=== PATIENT | female | born 1990 | race African-American/Black ===

== ENCOUNTER 2017-04-13 12:44 | Emergency (ER) | payer SELFPAY ==
[~2017-04-13] VITALS: Ht 165.1 cm; Wt 110.0 kg
[2017-04-13 12:46] VITALS: BP 120/79; PULSE 93; RESP 16; TEMP 98.2; O2SAT 98
--- NOTE | 2017-04-13 12:50 | PD ---
Physical Exam Time Seen by Provider: 12:49 Narrative 26 y/o female from [place] here for evaluation of seizure activity which she says occurred while sleeping. Her roommate told her she had a seizure. Currently on dilantin. Vital signs reviewed. Seen at triage desk. Awaiting bed placement. Data Data Last Documented VS Vital Signs Date Time Temp Pulse Resp B/P Pulse Ox O2 Delivery O2 Flow Rate FiO2 04/13/17 12:46 98.2 93 16 120/79 98 MDM Medical Record Reviewed: Yes Supervised Visit with MORALES: Venkat Juarez Apr 13, 2017 12:50
--- NOTE | 2017-04-13 12:55 | PD ---
HPI Chief Complaint: Seizure Time Seen by Provider: 12:55 Travel History International Travel<30 days: Yes Contact w/Intl Traveler<30days: [place] Traveled to: [facility] Traveled to known affect area: No History of Present Illness HPI 26-year-old female with history of seizures presents to the emergency department today for evaluation of foot her friend believed to have been a seizure. Patient was sleeping while this occurred. It was at 4 AM this morning. The friend accompanies the patient states that she rolled her to her side until the seizure activity subsided. [facility] ambulance was contacted and the patient chose not to come to the emergency department. Patient did not bite her tongue. There is no loss of bowel or bladder. Patient does not recall a postictal state. States when she woke up her friend was there. Patient states her last seizure was in February. She is supposed to be taking Dilantin but has not been taking this. At this time the patient states that she feels well. She has not been recently ill. Denies any drug or alcohol use. She has no other symptoms to report at this time. [facility] Past Medical History Seizures: Yes ?: Not Social History Alcohol Use: No Tobacco Use: No Substance Use: No Allergies-Medications (Allergen,Severity, Reaction): Coded Allergies: Penicillin (Verified Allergy, Severe, 04/13/17) Reported Meds & Prescriptions Reported Meds & Active Scripts Active Dilantin (Phenytoin Extended) 100 Mg Cap 100 Mg PO TID Review of Systems Except as stated in HPI: all other systems reviewed are Neg Physical Exam Narrative GENERAL: Well-nourished female patient, ambulatory and in no acute distress SKIN: Focused skin assessment warm/dry. HEAD: Atraumatic. Normocephalic. EYES: Pupils equal and round. No scleral icterus. No injection or drainage. ENT: No nasal bleeding or discharge. Mucous membranes pink and moist. NECK: Trachea midline. No JVD. CARDIOVASCULAR: Regular rate and rhythm. No murmur appreciated. RESPIRATORY: No accessory muscle use. Clear to auscultation. Breath sounds equal bilaterally. GASTROINTESTINAL: Abdomen soft, non-tender, nondistended. Hepatic and splenic margins not palpable. MUSCULOSKELETAL: No obvious deformities. No clubbing. No cyanosis. No edema. NEUROLOGICAL: Awake and alert. No obvious cranial nerve deficits. Motor grossly within normal limits. Normal speech. PSYCHIATRIC: Appropriate mood and affect Data Data Last Documented VS Vital Signs Date Time Temp Pulse Resp B/P Pulse Ox O2 Delivery O2 Flow Rate FiO2 04/13/17 13:03 Room Air 04/13/17 12:46 98.2 93 16 120/79 98 Orders Complete Blood Count With Diff (04/13/17 13:00) Basic Metabolic Panel (Bmp) (04/13/17 13:00) Phenytoin (Dilantin) (04/13/17 13:00) Blood Glucose (04/13/17 13:00) Ecg Monitoring (04/13/17 13:00) Iv Access Insert/Monitor (04/13/17 13:00) Oximetry (04/13/17 13:00) Sodium Chlor 0.9% 1000 Ml Inj (Ns 1000 M (04/13/17 13:00) Sodium Chloride 0.9% Flush (Ns Flush) (04/13/17 13:00) Ua Includes Microscopic (04/13/17 13:00) Ed Urine Pregnancytest Poc (04/13/17 13:00) Magnesium (Mg) (04/13/17 13:00) Phenytoin Inj (Dilantin Inj) (04/13/17 14:15) Labs Laboratory Tests Test 04/13/17 13:15 White Blood Count 9.8 TH/MM3 Red Blood Count 5.19 MIL/MM3 Hemoglobin 13.0 GM/DL Hematocrit 39.5 % Mean Corpuscular Volume 76.2 FL Mean Corpuscular Hemoglobin 25.0 PG Mean Corpuscular Hemoglobin 32.9 % Concent Red Cell Distribution Width 14.5 % Platelet Count 337 TH/MM3 Mean Platelet Volume 8.7 FL Neutrophils (%) (Auto) 63.0 % Lymphocytes (%) (Auto) 25.9 % Monocytes (%) (Auto) 8.3 % Eosinophils (%) (Auto) 2.1 % Basophils (%) (Auto) 0.7 % Neutrophils # (Auto) 6.1 TH/MM3 Lymphocytes # (Auto) 2.5 TH/MM3 Monocytes # (Auto) 0.8 TH/MM3 Eosinophils # (Auto) 0.2 TH/MM3 Basophils # (Auto) 0.1 TH/MM3 CBC Comment DIFF FINAL Differential Comment Urine Color YELLOW Urine Turbidity HAZY Urine pH 5.5 Urine Specific Turner 1.024 Urine Protein NEG mg/dL Urine Glucose (UA) NEG mg/dL Urine Ketones NEG mg/dL Urine Occult Blood NEG Urine Nitrite NEG Urine Bilirubin NEG Urine Urobilinogen LESS THAN 2.0 MG/DL Urine Leukocyte Esterase MOD Urine RBC 2 /hpf Urine WBC 1 /hpf Urine Squamous Epithelial 12 /hpf Cells Urine Bacteria RARE /hpf Urine Mucus FEW /lpf Sodium Level 141 MEQ/L Potassium Level 3.9 MEQ/L Chloride Level 106 MEQ/L Carbon Dioxide Level 27.5 MEQ/L Anion Gap 8 MEQ/L Blood Urea Nitrogen 8 MG/DL Creatinine 0.80 MG/DL Estimat Glomerular Filtration 85 ML/MIN Rate Random Glucose 94 MG/DL Calcium Level 9.4 MG/DL Magnesium Level 2.1 MG/DL Phenytoin (Dilantin) Level 2.3 MCG/ML MDM Medical Decision Making Medical Screen Exam Complete: Yes Emergency Medical Condition: Yes Medical Record Reviewed: Yes Differential Diagnosis Breakthrough seizure versus medication noncompliance versus electrolyte abnormality versus subtherapeutic medication Narrative Course 26-year-old female presents to emergency department for evaluation of possible seizure-like activity. Patient does have history of seizures with her last known one being in February. She has not been taking her medication as prescribed. Here she is awake and alert. She has known focal deficits. CBC is without acute abnormality. BMP is within normal limits. Magnesium is 2.1. Urinalysis is hazy with moderate leukocyte esterase, rare bacteria, few mucus. Phenytoin is subtherapeutic at 2.3. Patient is given Dilantin bolus. She will get a prescription for Dilantin. She is instructed to take this as directed and to follow-up with a neurologist. She agrees to return immediately with any acute worsening of symptoms. Diagnosis Primary Impression: Seizure Additional Impression: Subtherapeutic serum dilantin level Referrals: Neurologist Primary Care Physician Patient Instructions: General Instructions, Recurrent Seizures in Adults (ED) Additional Instructions: It is important that you take your antiseizure medication as prescribed Follow-up with the primary care provider Seek neurology evaluation Return immediately with any acute worsening of symptoms Med/Other Pt SpecificInfo: Prescription(s) given Scripts Phenytoin Extended (Dilantin)100 Mg [id number] Mg PO TID #90 CAP Ref 0 Prov:Theresa Moreno 04/13/17 Disposition: 01 DISCHARGE HOME Condition: Stable Theresa Moreno Apr 13, 2017 12:55
[2017-04-13] MEDS ORDERED: SODIUM CHLORIDE 0.9% FLUSH 10 ML FLUSH IVF PRN (13:00)
[2017-04-13] MEDS ORDERED: SODIUM CHLOR 0.9% 1000 ML INJ 1,000 ML IV ONE (13:00)
[2017-04-13 13:30] LABS: AUTOMATED NEUTROPHIL # 6.1 TH/MM3 (1.8-7.7); BASOPHIL # 0.1 TH/MM3 (0-0.2); BASOPHIL % 0.7 % (0.0-2.0); EOSINOPHIL # 0.2 TH/MM3 (0-0.4); EOSINOPHIL % 2.1 % (0.0-4.0); HEMATOCRIT 39.5 % (35.0-46.0); HEMO FLAGS DIFF FINAL; LYMPH % 25.9 % (9.0-44.0); LYMPHOCYTE # 2.5 TH/MM3 (1.0-4.8); MEAN CELL VOLUME 76.2 FL (80.0-100.0); MEAN CORPUSCULAR HGB CONC 32.9 % (32.0-36.0); MONO % 8.3 % (0.0-8.0); PLATELET COUNT 337 TH/MM3 (150-450); RED BLOOD COUNT 5.19 MIL/MM3 (4.00-5.30); RED CELL DISTRIBUTION WIDTH 14.5 % (11.6-17.2); WHITE BLOOD COUNT 9.8 TH/MM3 (4.0-11.0)
[2017-04-13 13:35] LABS: BACTERIA, URINE RARE /hpf; BLOOD, URINE NEG (NEG); GLUCOSE,URINE NEG (NEG); KETONE, URINE NEG (NEG); MUCUS URINE FEW /lpf (OCC); NITRITE,URINE NEG (NEG); PH, URINE 5.5 (5.0-8.5); SQUAMOUS EPITHELIAL CELL URINE 12 /hpf (0-5); URINE COLOR YELLOW (YELLW/STRAW)
[2017-04-13 13:42] LABS: BICARBONATE 27.5 MEQ/L (21.0-32.0); MAGNESIUM 2.1 MG/DL (1.5-2.5); POTASSIUM 3.9 MEQ/L (3.5-5.1)
[2017-04-13] MEDS ORDERED: PHENYTOIN INJ 1,000 MG in SODIUM CHLORIDE 0.9% INJ 100 ML IV ONE (14:15)
[2017-04-13] MEDS ORDERED: DILA100C PO (14:40)
== END 2017-04-13 16:32 | disposition home or self-care (01) ==
LOC: NEPC 12:44
DX: R56.9 Unspecified convulsions (principal)
CPT/HCPCS: 80048; 80185; 81001; 83735; 84703; 85025; 96361; 96365; 96366; 99284; J1165; J7030

== ENCOUNTER 2017-10-21 16:29 | Emergency (ER) | payer SELFPAY ==
[~2017-10-21] VITALS: Ht 165.1 cm; Wt 100.0 kg
[~2017-10-21 16:29] MED LIST: DILA100C PO
[2017-10-21 16:34] VITALS: BP 128/66; PULSE 99; RESP 17; TEMP 97.9; O2SAT 100
--- NOTE | 2017-10-21 16:41 | PD ---
HPI Chief Complaint: Seizure Time Seen by Provider: 16:41 Travel History International Travel<30 days: No Contact w/Intl Traveler<30days: No Traveled to known affect area: No History of Present Illness HPI 27-year-old female with history of seizure disorder, currently not on her Dilantin, presents to emergency department for evaluation following a seizure that occurred approximately 1 hour ago. This was witnessed. Patient to not strike her head or lose consciousness. She denies any focal deficits or weakness. There is no tongue biting or incontinence. Patient has no other symptoms reported this time. [facility] Past Medical History Diminished Hearing: No Seizures: Yes ?: Not Social History Alcohol Use: No Tobacco Use: No Substance Use: No Allergies-Medications (Allergen,Severity, Reaction): Coded Allergies: penicillin G (Unverified Allergy, Severe, 06/26/17) Reported Meds & Prescriptions Reported Meds & Active Scripts Active Dilantin (Phenytoin Extended) 100 Mg Cap 100 Mg PO TID Dilantin (Phenytoin Extended) 100 Mg Cap 100 Mg PO TID Review of Systems Except as stated in HPI: all other systems reviewed are Neg Physical Exam Narrative GENERAL: Well-nourished, well-developed female patient, ambulatory and in no acute distress. SKIN: Focused skin assessment warm/dry. HEAD: Normocephalic. Atraumatic EYES: No scleral icterus. No injection or drainage. Pupils are equal and reactive to light. EOMI. ENT: Mucosa pink and moist. No erythema or exudates. No uvular edema. No uvular , palatal, or tonsillar deviation. Airway patent. Nasal turbinates appear normal without nasal blood, purulent drainage or septal hematoma. NECK: Supple, trachea midline. No JVD or lymphadenopathy. CARDIOVASCULAR: Regular rate and rhythm without murmurs, gallops, or rubs. RESPIRATORY: Breath sounds equal bilaterally. No accessory muscle use. GASTROINTESTINAL: Abdomen soft, non-tender, nondistended. MUSCULOSKELETAL: No cyanosis, or edema. Equal dust mixer strength bilaterally. BACK: Nontender without obvious deformity. No CVA tenderness. Data Data Last Documented VS Vital Signs Date Time Temp Pulse Resp B/P (MAP) Pulse Ox O2 Delivery O2 Flow Rate FiO2 10/21/17 18:18 114/56 (75) 10/21/17 16:38 17 100 Room Air 10/21/17 16:34 97.9 99 Orders Orders Phenytoin Inj (Dilantin Inj) (10/21/17 16:45) Acetaminophen (Tylenol) (10/21/17 17:00) Ed Discharge Order (10/21/17 17:34) Electrocardiogram (10/21/17 16:44) [facility] Medical Decision Making Medical Screen Exam Complete: Yes Emergency Medical Condition: Yes Medical Record Reviewed: Yes Differential Diagnosis Seizure disorder versus medication noncompliance versus subtherapeutic Dilantin level versus electro-lyte abnormality Narrative Course 27-year-old female with history of seizure disorder presents to emergency department following a seizure. This was witnessed. Patient has no focal deficits or weakness. She is awake, oriented 3. Follows commands with equal strength. I discussed the patient my attending. With seizure disorder and known noncompliance with medication at this time, there is no further workup warranted. We will give her an IV bolus of Dilantin and give her a refill of her Dilantin medication. Patient has had no seizure activity while here. She'll be discharged at this time. Diagnosis Primary Impression: Seizure Referrals: Primary Care Physician Patient Instructions: General Instructions, Recurrent Seizures in Adults (ED) Additional Instructions: It is important that you take your medication as prescribed Follow-up with a primary care provider Return immediately with any acute worsening of symptoms Med/Other Pt SpecificInfo: Prescription(s) given Scripts Phenytoin Extended (Dilantin) 100 Mg Cap 100 MG PO TID for Control Seizures, #90 CAP 0 Refills Prov: Theresa Moreno 10/21/17 Disposition: 01 DISCHARGE HOME Condition: Stable Theresa Moreno Oct 21, 2017 16:41
[2017-10-21] MEDS ORDERED: PHENYTOIN INJ 1,500 MG in SODIUM CHLOR 0.9% 250 ML INJ 250 ML IV ONE (16:45)
[2017-10-21] MEDS ORDERED: ACETAMINOPHEN 325 MG TAB PO ONE (17:00)
[2017-10-21] MEDS ORDERED: DILA100C PO (17:36)
[2017-10-21 18:18] VITALS: BP 114/56
--- NOTE | 2017-10-22 18:06 | EKG ---
Date Performed: 10/21/2017 Time Performed: 16:44:07 PTAGE: 27 years EKG: Sinus rhythm J point in the early precordial lead directly represents early repolarization NORMAL ECG NO PREVIOUS TRACING DOCTOR: Burke Ng Interpretating Date/Time 10/22/2017 18:05:16
== END 2017-10-21 19:09 | disposition home or self-care (01) ==
LOC: NEPE 16:29
DX: G40.909 Epilepsy, unspecified, not intractable, without status epilepticus (principal); Z88.0 Allergy status to penicillin; Z79.899 Other long term (current) drug therapy
CPT/HCPCS: 93005; 96365; 99285; J1165; J7050

== ENCOUNTER 2017-10-28 18:06 | Emergency (ER) | payer SELFPAY ==
[~2017-10-28] VITALS: Ht 160 cm; Wt 115.0 kg
[2017-10-28 18:08] VITALS: BP 133/75; PULSE 93; RESP 16; TEMP 97.8; O2SAT 98
[2017-10-28] MEDS ORDERED: IBUPROFEN 800 MG TAB PO ONE (18:45)
--- NOTE | 2017-10-28 19:05 | PD ---
HPI Chief Complaint: Pain: Acute or Chronic Time Seen by Provider: 18:37 Travel History International Travel<30 days: No Contact w/Intl Traveler<30days: No Traveled to known affect area: No History of Present Illness HPI 27-year-old right-hand dominant female presents to the ED for evaluation of one week history of 4/10 left arm pain. Gradual onset. Patient states that she had an IV placed in the left antecubital space one week ago. She endorses warmth, redness and tenderness of the area. She endorses an episode of weakness of the hand which is now resolved. She states that the pain is worsened by certain motions. She denies fevers, chills, shortness of breath, chest pain, palpitations. No treatment attempted at home. PFSH Past Medical History Diminished Hearing: No Seizures: Yes ?: Not LMP: 09/2017 Social History Alcohol Use: No Tobacco Use: No Substance Use: No Allergies-Medications (Allergen,Severity, Reaction): Coded Allergies: penicillin G (Unverified Allergy, Severe, 10/28/17) Reported Meds & Prescriptions Reported Meds & Active Scripts Active Dilantin (Phenytoin Extended) 100 Mg Cap 100 Mg PO TID Review of Systems Except as stated in HPI: all other systems reviewed are Neg Physical Exam Narrative GENERAL: Well-nourished, well-developed [place] female in no acute distress. SKIN: Focused skin assessment warm/dry. HEAD: Normocephalic. EYES: No scleral icterus. No injection or drainage. NECK: Supple, trachea midline. No JVD or lymphadenopathy. CARDIOVASCULAR: Regular rate and rhythm without murmurs, gallops, or rubs. RESPIRATORY: Breath sounds are and equal bilaterally. No accessory muscle use. GASTROINTESTINAL: Abdomen soft, non-tender, nondistended. MUSCULOSKELETAL: No cyanosis, or edema. FOCUSED LEFT UPPER EXTREMITY EXAM: 2+ DP pulse. There is faint erythema of the anterior aspect of the left upper arm. There is ropey induration from the decubital area to the mid bicep. Strong photoengraving finisher strength. Sensation intact to light touch distally. BACK: Nontender without obvious deformity. No CVA tenderness. Data Data Last Documented VS Vital Signs Date Time Temp Pulse Resp B/P (MAP) Pulse Ox O2 Delivery O2 Flow Rate FiO2 10/28/17 18:08 97.8 93 16 133/75 (94) 98 Orders Orders Ibuprofen (Motrin) (10/28/17 18:45) Us Arm Venous Doppler (10/28/17 18:40) MDM Medical Decision Making Medical Screen Exam Complete: Yes Emergency Medical Condition: Yes Differential Diagnosis Superficial thrombophlebitis versus DVT versus cellulitis versus other Narrative Course 27-year-old right-hand dominant female presents to the ED for evaluation of one week history of 4/10 left arm pain. Gradual onset. Patient states that she had an IV placed in the left antecubital space one week ago. She endorses warmth, redness and tenderness of the area. She endorses an episode of weakness of the hand which is now resolved. She states that the pain is worsened by certain motions. She denies fevers, chills, shortness of breath, chest pain, palpitations. Vitals reviewed. On exam there is ropey induration above the left antecubital space. Patient was administered ibuprofen. We'll get a ultrasound to rule out DVT. Patient signed out to Masood Cutler PA-C at end of shift. Please see his note for disposition. Kasey Ring Oct 28, 2017 19:05
--- NOTE | 2017-10-28 19:51 | RADRPT ---
EXAM DATE/TIME: 10/28/2017 18:49 [facility] COMPARISON: No previous studies available for comparison. INDICATIONS : Left arm swelling. MEDICAL HISTORY : Seizures. SURGICAL HISTORY : None. ENCOUNTER: Initial ACUITY: 1 week PAIN SCORE: 6/10 LOCATION: Left arm. FINDINGS: There is occlusive thrombus in the mid and distal cephalic vein. There is spontaneous flow documented in the brachial, basilic, axillary, and subclavian veins. The flow is phasic with respiration. Dir ection of flow in the jugular vein is caudal. CONCLUSION: Thrombus seen in the left mid and distal cephalic vein. Arnaud Winn MD on October 28, 2017 at 19:49 Board Certified Radiologist. This report was verified electronically.
[2017-10-28] MEDS ORDERED: IBUP-232 PO (20:55)
--- NOTE | 2017-10-28 20:59 | PD ---
Physical Exam Date Seen by Provider: Oct 28, 2017 Time Seen by Provider: 20:57 Data Data Last Documented VS Vital Signs Date Time Temp Pulse Resp B/P (MAP) Pulse Ox O2 Delivery O2 Flow Rate FiO2 10/28/17 18:08 97.8 93 16 133/75 (94) 98 Orders Orders Ibuprofen (Motrin) (10/28/17 18:45) Us Arm Venous Doppler (10/28/17 18:40) Ed Discharge Order (10/28/17 20:55) [facility] Medical Record Reviewed: Yes Supervised Visit with MORALES: Yes Interpretation(s) Last 24 hours Impressions Upper Extremity Ultrasound 10/28/17 1840 Signed Impressions: Service Date/Time: Saturday, October 28, 2017 18:49 - CONCLUSION: Thrombus seen in the left mid and distal cephalic vein. Arnaud Winn MD Differential Diagnosis . Narrative Course Ultrasound of the extremity reveals superficial phlebitis in the cephalic vein. Patient is notified of the ultrasound findings. She understands that this is a superficial phlebitis and not a deep venous thrombosis. Patient will be treated symptomatically with warm moist heat, ibuprofen. This is superficial phlebitis Diagnosis Primary Impression: Superficial phlebitis Patient Instructions: General Instructions Additional Instruction: Rest. Warm moist compresses the next few days. Motrin. Follow-up with a primary care doctor in 1 week. Return to the ER if any problems. Med/Other Pt SpecificInfo: Prescription(s) given Scripts Ibuprofen (Ibuprofen) 600 Mg Tab 600 MG PO Q6H Y for Pain/Inflammation, #40 TAB 0 Refills Prov: Barbie Ramírez MD 10/28/17 Disposition: 01 DISCHARGE HOME Condition: Stable See Kemp Oct 28, 2017 20:59
== END 2017-10-28 21:27 | disposition home or self-care (01) ==
LOC: NEPD 18:06
DX: I82.612 Acute embolism and thrombosis of superficial veins of left upper extremity (principal); R56.9 Unspecified convulsions; Z88.0 Allergy status to penicillin
CPT/HCPCS: 93971; 99284

== ENCOUNTER 2017-12-05 14:37 | Emergency (ER) | payer MEDICAID ==
[~2017-12-05] VITALS: Ht 165.1 cm; Wt 109.0 kg
[~2017-12-05 14:37] MED LIST changes: +IBUP-232 PO
[2017-12-05 14:38] VITALS: BP 133/68; PULSE 100; RESP 18; TEMP 99; O2SAT 99
[2017-12-05 15:28] LABS: AUTOMATED NEUTROPHIL # 7.1 TH/MM3 (1.8-7.7); BASOPHIL # 0.1 TH/MM3 (0-0.2); BASOPHIL % 0.7 % (0.0-2.0); EOSINOPHIL # 0.4 TH/MM3 (0-0.4); EOSINOPHIL % 3.7 % (0.0-4.0); HEMATOCRIT 37.2 % (35.0-46.0); HEMOGLOBIN 12.1 GM/DL (11.6-15.3); LYMPH % 20.8 % (9.0-44.0); LYMPHOCYTE # 2.2 TH/MM3 (1.0-4.8); MEAN CELL VOLUME 75.2 FL (80.0-100.0); MEAN CORPUSCULAR HEMOGLOBIN 24.5 PG (27.0-34.0); MEAN CORPUSCULAR HGB CONC 32.6 % (32.0-36.0); MEAN PLATELET VOLUME 8.1 FL (7.0-11.0); MONO % 8.4 % (0.0-8.0); MONOCYTE # 0.9 TH/MM3 (0-0.9); NEUT % 66.4 % (16.0-70.0); PLATELET COUNT 309 TH/MM3 (150-450); RED BLOOD COUNT 4.94 MIL/MM3 (4.00-5.30); RED CELL DISTRIBUTION WIDTH 15.3 % (11.6-17.2); WHITE BLOOD COUNT 10.7 TH/MM3 (4.0-11.0)
[2017-12-05 15:44] LABS: BICARBONATE 26.8 MEQ/L (21.0-32.0); CREATININE 0.85 MG/DL (0.50-1.00)
[2017-12-05 15:45] LABS: BACTERIA, URINE RARE /hpf; BILIRUBIN, URINE NEG (NEG); BLOOD, URINE LARGE (NEG); GLUCOSE,URINE NEG (NEG); KETONE, URINE TRACE mg/dL (NEG); MUCUS URINE FEW /lpf (OCC); NITRITE,URINE NEG (NEG); PH, URINE 5.5 (5.0-8.5); SQUAMOUS EPITHELIAL CELL URINE 7 /hpf (0-5); URINE LEUKOCYTE ESTERASE SMALL (NEG)
[2017-12-05 15:48] LABS: URINE COLOR RED (YELLW/STRAW)
--- NOTE | 2017-12-05 16:47 | PD ---
Data Data Last Documented VS Vital Signs Date Time Temp Pulse Resp B/P (MAP) Pulse Ox O2 Delivery O2 Flow Rate FiO2 12/05/17 14:38 99.0 100 18 133/68 (89) 99 Room Air Orders Orders Beta Hcg (Quant/Titer) (12/05/17 14:41) Complete Blood Count With Diff (12/05/17 14:41) Basic Metabolic Panel (Bmp) (12/05/17 14:41) Complete Rh (12/05/17 14:41) Urinalysis - C+S If Indicated (12/05/17 14:41) Ed Urine Pregnancytest Poc (12/05/17 14:41) Urine Culture (12/05/17 14:53) Ed Poc Ultrasound (12/05/17 ) Us Pelvis Comp W Transvaginal (12/05/17 ) Labs Laboratory Tests Test 12/05/17 14:53 12/05/17 15:04 Urine Color RED Urine Turbidity HAZY Urine pH 5.5 Urine Specific [place] 1.023 Urine Protein 30 mg/dL Urine Glucose (UA) NEG mg/dL Urine Ketones TRACE mg/dL Urine Occult Blood LARGE Urine Nitrite NEG Urine Bilirubin NEG Urine Urobilinogen LESS THAN 2.0 MG/DL Urine Leukocyte Esterase SMALL Urine RBC /hpf Urine WBC 13 /hpf Urine Squamous Epithelial Cells 7 /hpf Urine Bacteria RARE /hpf Urine Mucus FEW /lpf Microscopic Urinalysis Comment CULTURE INDICATED White Blood Count 10.7 TH/MM3 Red Blood Count 4.94 MIL/MM3 Hemoglobin 12.1 GM/DL Hematocrit 37.2 % Mean Corpuscular Volume 75.2 FL Mean Corpuscular Hemoglobin 24.5 PG Mean Corpuscular Hemoglobin Concent 32.6 % Red Cell Distribution Width 15.3 % Platelet Count 309 TH/MM3 Mean Platelet Volume 8.1 FL Neutrophils (%) (Auto) 66.4 % Lymphocytes (%) (Auto) 20.8 % Monocytes (%) (Auto) 8.4 % Eosinophils (%) (Auto) 3.7 % Basophils (%) (Auto) 0.7 % Neutrophils # (Auto) 7.1 TH/MM3 Lymphocytes # (Auto) 2.2 TH/MM3 Monocytes # (Auto) 0.9 TH/MM3 Eosinophils # (Auto) 0.4 TH/MM3 Basophils # (Auto) 0.1 TH/MM3 CBC Comment DIFF FINAL Differential Comment Blood Urea Nitrogen 7 MG/DL Creatinine 0.85 MG/DL Random Glucose 96 MG/DL Calcium Level 9.0 MG/DL Sodium Level 138 MEQ/L Potassium Level 3.5 MEQ/L Chloride Level 106 MEQ/L Carbon Dioxide Level 26.8 MEQ/L Anion Gap 5 MEQ/L Estimat Glomerular Filtration Rate 96 ML/MIN Human Chorionic Gonadotropin, Quant 14458 MIU/ML MDM Supervised Visit with MORALES: Yes Narrative Course The history, exam, and medical decision-making in the associated midlevel provider note were completed with my assistance. I reviewed and agree with the findings presented. I attest that I had a [id number] encounter with the patient on the same day, and personally performed and documented my assessment and findings in the medical record. *My assessment and Findings: This is a 27-year-old female who presents to the emergency department with vaginal bleeding in the setting of early . I performed a bedside ultrasound was unable to visualize a gestational sac. Formal ultrasound will be obtained. If no IUP is visualized patient will require serial beta hCG in 2 days. Procedures Procedure Narrative Ultrasound: Uterus was visualized and there appeared to be heterogenous products in the uterus but no definitive gestational sac. Janet Lagos MD Dec 05, 2017 16:47
--- NOTE | 2017-12-05 17:47 | PD ---
HPI Chief Complaint: Related Problem Time Seen by Provider: 15:57 Travel History International Travel<30 days: No Contact w/Intl Traveler<30days: No Traveled to known affect area: No History of Present Illness HPI 27-year-old female that presents to the ED for evaluation of vaginal bleeding in . The patient she's possibility about 2 months . Per patient she notices the bleeding since yesterday but the bleeding became more severe today. Per patient she has abdominal cramping like her. The pain is 4 out of 10. Denies any numbness, tingling, weakness. States having some clots. Per patient her last menstrual period was in October 01. She did urgency test at home and was positive. She denies any medical issues. Allergies to penicillin. Denies any nausea or vomiting. No bowel movement or urinary issues. PFSH Past Medical History Diminished Hearing: No Seizures: Yes ?: LMP: 10/01/17 Social History Alcohol Use: No Tobacco Use: No Substance Use: No Allergies-Medications (Allergen,Severity, Reaction): Coded Allergies: penicillin G (Verified Allergy, Severe, 12/05/17) Reported Meds & Prescriptions Reported Meds & Active Scripts Active Ibuprofen 600 Mg Tab 600 Mg PO Q6H PRN Dilantin (Phenytoin Extended) 100 Mg Cap 100 Mg PO TID Review of Systems Except as stated in HPI: all other systems reviewed are Neg Physical Exam Narrative GENERAL: SKIN: Warm and dry. HEAD: Atraumatic. Normocephalic. EYES: Pupils equal and round. No scleral icterus. No injection or drainage. ENT: No nasal bleeding or discharge. Mucous membranes pink and moist. Tongue is midline. No uvula deviation. NECK: Trachea midline. No JVD. CARDIOVASCULAR: Regular rate and rhythm. No murmurs, S3, S4. RESPIRATORY: No accessory muscle use. Clear to auscultation. Breath sounds equal bilaterally. GASTROINTESTINAL: Abdomen soft, non-tender, nondistended. Hepatic and splenic margins not palpable. MUSCULOSKELETAL: Extremities without clubbing, cyanosis, or edema. No obvious deformities. Full range of motion of the upper and lower extremities bilaterally. 2+ pulses bilaterally. NEUROLOGICAL: Awake and alert. No obvious cranial nerve deficits. Motor grossly within normal limits. Five out of 5 muscle strength in the arms and legs. Normal speech. PSYCHIATRIC: Appropriate mood and affect; insight and judgment normal. Data Data Last Documented VS Vital Signs Date Time Temp Pulse Resp B/P (MAP) Pulse Ox O2 Delivery O2 Flow Rate FiO2 12/05/17 14:38 99.0 100 18 133/68 (89) 99 Room Air Orders Orders Beta Hcg (Quant/Titer) (12/05/17 14:41) Complete Blood Count With Diff (12/05/17 14:41) Basic Metabolic Panel (Bmp) (12/05/17 14:41) Complete Rh (12/05/17 14:41) Urinalysis - C+S If Indicated (12/05/17 14:41) Ed Urine Pregnancytest Poc (12/05/17 14:41) Urine Culture (12/05/17 14:53) Ed Poc Ultrasound (12/05/17 ) Us Pelvis (Ques Pr/Ect)W Trans (12/05/17 ) Labs Laboratory Tests Test 12/05/17 14:53 12/05/17 15:04 Urine Color RED Urine Turbidity HAZY Urine pH 5.5 Urine Specific [place] 1.023 Urine Protein 30 mg/dL Urine Glucose (UA) NEG mg/dL Urine Ketones TRACE mg/dL Urine Occult Blood LARGE Urine Nitrite NEG Urine Bilirubin NEG Urine Urobilinogen LESS THAN 2.0 MG/DL Urine Leukocyte Esterase SMALL Urine RBC /hpf Urine WBC 13 /hpf Urine Squamous Epithelial Cells 7 /hpf Urine Bacteria RARE /hpf Urine Mucus FEW /lpf Microscopic Urinalysis Comment CULTURE INDICATED White Blood Count 10.7 TH/MM3 Red Blood Count 4.94 MIL/MM3 Hemoglobin 12.1 GM/DL Hematocrit 37.2 % Mean Corpuscular Volume 75.2 FL Mean Corpuscular Hemoglobin 24.5 PG Mean Corpuscular Hemoglobin Concent 32.6 % Red Cell Distribution Width 15.3 % Platelet Count 309 TH/MM3 Mean Platelet Volume 8.1 FL Neutrophils (%) (Auto) 66.4 % Lymphocytes (%) (Auto) 20.8 % Monocytes (%) (Auto) 8.4 % Eosinophils (%) (Auto) 3.7 % Basophils (%) (Auto) 0.7 % Neutrophils # (Auto) 7.1 TH/MM3 Lymphocytes # (Auto) 2.2 TH/MM3 Monocytes # (Auto) 0.9 TH/MM3 Eosinophils # (Auto) 0.4 TH/MM3 Basophils # (Auto) 0.1 TH/MM3 CBC Comment DIFF FINAL Differential Comment Blood Urea Nitrogen 7 MG/DL Creatinine 0.85 MG/DL Random Glucose 96 MG/DL Calcium Level 9.0 MG/DL Sodium Level 138 MEQ/L Potassium Level 3.5 MEQ/L Chloride Level 106 MEQ/L Carbon Dioxide Level 26.8 MEQ/L Anion Gap 5 MEQ/L Estimat Glomerular Filtration Rate 96 ML/MIN Human Chorionic Gonadotropin, Quant 55735 MIU/ML MDM Medical Decision Making Medical Screen Exam Complete: Yes Emergency Medical Condition: Yes Medical Record Reviewed: Yes Interpretation(s) CBC & BMP Diagram 12/05/17 15:04 Cal[place] 9.[address] [place] [address] Differential Diagnosis versus bleeding with versus missed versus threatened Narrative Course 27-year-old female that presents to the ED for evaluation of bleeding during . Patient was properly examined and was found to have signs and symptoms concerning for miscarriage. Labs and imaging were ordered. My attending did a bedside ultrasound and could not really see a fetus that she recommended having a formal ultrasound which was ordered. Labs and imaging still pending and the writing of this note. Case was signed out to Dr. Joy pending disposition. Patient Instructions: General Instructions Additional Instructions: Follow up with [employer]. Recheck in 48 hours to be make sure your levels are trending down. See ED if worsening symptoms. Med/Other Pt SpecificInfo: No Change to Meds Disposition: 01 DISCHARGE HOME Condition: Stable Pj Fay Dec 05, 2017 17:47
--- NOTE | 2017-12-05 18:09 | RADRPT ---
EXAM DATE/TIME: 12/05/2017 17:02 [facility] COMPARISON: No previous studies available for comparison. INDICATIONS : Bleeding and pain with . LAB(S): Beta-hC MEDICAL HISTORY : . Seizures. Miscarriage. SURGICAL HISTORY : None. ENCOUNTER: Initial ACUITY: 2 days PAIN SCORE: 4/10 LOCATION: Bilateral pelvis MEASUREMENTS: UTERUS: 13.2 x 7.6 x 6.1 cm ENDOMETRIAL STRIPE: >20 mm RIGHT OVARY: 3.2 x 2.2 x 2.4 cm LEFT OVARY: 4.3 x 3.3 x 2.3 cm FREE FLUID: Yes Trace in posterior cul de sac. CROWN RUMP LENGTH: Non visualized. = WKS DAYS FHR: Non visualized. BPM FINDINGS: UTERUS: The myometrium has homogeneous echotexture without mass. No identifiable gestational sac despite the positive beta hCG. No identifiable retained products of conception. Endometrial stripe is prominent. 5 mm nabothian-type cyst in the region of the cervix. RIGHT OVARY: Ovary contains no mass or significant cystic lesion. LEFT OVARY: Complex area in the mid left ovary measures 2.6 x 2.6 x 1.7 cm and likely represents the involuting c orpus luteum. MISCELLANEOUS: Trace free fluid in the cul-de-sac. CONCLUSION: 1. Sonographic findings characteristic of an aborted . 2. Trace free fluid. Amish Muniz MD on December 05, 2017 at 18:01 Board Certified Radiologist. This report was verified electronically.
[2017-12-05 18:41] VITALS: BP 133/79; PULSE 81; RESP 17; O2SAT 97
--- NOTE | 2017-12-05 19:07 | PD ---
Physical Exam Narrative Received sign out from previous team to follow up with US. 27yo F who is [id number] here with vaginal bleeding since 2am today. Also with some suprapubic pain. Labs reviewed, no leukocytosis. H/H [place] [address]. UA showed WBC 13. Culture indicated. Pt given macrobid. US pelvic showed complex area in left ovary likely corpus luteum. Also no gestational sac. I discussed with OB hospitalist Dr. Galaviz who recommends repeat bHCG now. Said that it is too high for an ectopic . [place] [address]. She recommended to have pt follow up with OBGYN in 2-3 days for repeat ultrasound. Pt verbalize understanding of instructions. Return precautions given. Data Data Last Documented VS Vital Signs Date Time Temp Pulse Resp B/P (MAP) Pulse Ox O2 Delivery O2 Flow Rate FiO2 12/05/17 21:31 12/05/17 21:31 87 18 100 Room Air 12/05/17 14:38 99.0 Orders Orders Beta Hcg (Quant/Titer) (12/05/17 14:41) Complete Blood Count With Diff (12/05/17 14:41) Basic Metabolic Panel (Bmp) (12/05/17 14:41) Complete Rh (12/05/17 14:41) Urinalysis - C+S If Indicated (12/05/17 14:41) Ed Urine Pregnancytest Poc (12/05/17 14:41) Urine Culture (12/05/17 14:53) Ed Poc Ultrasound (12/05/17 ) Us Pelvis (Ques Pr/Ect)W Trans (12/05/17 ) Beta Hcg (Quant/Titer) (12/05/17 19:42) Gc And Chlamydia Pcr (12/05/17 19:42) Wet Prep Profile (12/05/17 19:42) Nitrofurantoin Monohyd Macrocr (Macrobid (12/05/17 19:45) Ed Discharge Order (12/05/17 21:19) Labs Laboratory Tests Test 12/05/17 14:53 12/05/17 15:04 12/05/17 19:52 Urine Color RED Urine Turbidity HAZY Urine pH 5.5 Urine Specific [place] 1.023 Urine Protein 30 mg/dL Urine Glucose (UA) NEG mg/dL Urine Ketones TRACE mg/dL Urine Occult Blood LARGE Urine Nitrite NEG Urine Bilirubin NEG Urine Urobilinogen LESS THAN 2.0 MG/DL Urine Leukocyte Esterase SMALL Urine RBC /hpf Urine WBC 13 /hpf Urine Squamous Epithelial Cells 7 /hpf Urine Bacteria RARE /hpf Urine Mucus FEW /lpf Microscopic Urinalysis Comment CULTURE INDICATED White Blood Count 10.7 TH/MM3 Red Blood Count 4.94 MIL/MM3 Hemoglobin 12.1 GM/DL Hematocrit 37.2 % Mean Corpuscular Volume 75.2 FL Mean Corpuscular Hemoglobin 24.5 PG Mean Corpuscular Hemoglobin Concent 32.6 % Red Cell Distribution Width 15.3 % Platelet Count 309 TH/MM3 Mean Platelet Volume 8.1 FL Neutrophils (%) (Auto) 66.4 % Lymphocytes (%) (Auto) 20.8 % Monocytes (%) (Auto) 8.4 % Eosinophils (%) (Auto) 3.7 % Basophils (%) (Auto) 0.7 % Neutrophils # (Auto) 7.1 TH/MM3 Lymphocytes # (Auto) 2.2 TH/MM3 Monocytes # (Auto) 0.9 TH/MM3 Eosinophils # (Auto) 0.4 TH/MM3 Basophils # (Auto) 0.1 TH/MM3 CBC Comment DIFF FINAL Differential Comment Blood Urea Nitrogen 7 MG/DL Creatinine 0.85 MG/DL Random Glucose 96 MG/DL Calcium Level 9.0 MG/DL Sodium Level 138 MEQ/L Potassium Level 3.5 MEQ/L Chloride Level 106 MEQ/L Carbon Dioxide Level 26.8 MEQ/L Anion Gap 5 MEQ/L Estimat Glomerular Filtration Rate 96 ML/MIN Human Chorionic Gonadotropin, Quant 27470 MIU/ML 31242 MIU/ML Clue Cells (Wet Prep) NS Vaginal Trichomonas (Wet Prep) NS Vaginal Yeast (Wet Prep) NS Chlamydia trachomatis DNA (PCR) NOT DETECTED Neisseria gonorrhoeae DNA (PCR) NOT DETECTED MDM Supervised Visit with MORALES: Yes Diagnosis Primary Impression: UTI (urinary tract infection) Qualified Codes: N39.0 - Urinary tract infection, site not specified; R31.9 - Hematuria, unspecified Referrals: Humberto Lepe MD 2 days Patient Instructions: General Instructions Departure Forms: Tests/Procedures Additional Instruction: Please follow up with OBGYN in 2-3 days for repeat ultrasound. Return to the ED if symptoms worsen. Med/Other Pt SpecificInfo: Prescription(s) given Scripts Acetaminophen (Tylenol) 325 Mg Tab 650 MG PO Q6H Y for PAIN SCALE 1 TO 4, #20 TAB 0 Refills Prov: Jeannie Joy DO 12/05/17 Nitrofurantoin Monohydrate Macrocrystals (Macrobid) 100 Mg Cap 100 MG PO BID for Infection for 5 Days, #10 CAP 0 Refills Prov: Jeannie Joy DO 12/05/17 Disposition: 01 DISCHARGE HOME Condition: Stable Jeannie Joy DO Dec 05, 2017 19:07
[2017-12-05] MEDS ORDERED: NITROFURANTOIN MONOHYD MACROCR 100 MG CAP PO ONE (19:45)
[2017-12-05] MEDS ORDERED: MACR100C2 PO (21:19)
[2017-12-05] MEDS ORDERED: TYLE325T PO (21:19)
[2017-12-05 21:31] VITALS: BP 135/89; PULSE 87; RESP 18; O2SAT 100
== END 2017-12-05 21:32 | disposition home or self-care (01) ==
LOC: NEPD 14:37
DX: O23.41 Unspecified infection of urinary tract in pregnancy, first trimester (principal); Z34.91 Encounter for supervision of normal pregnancy, unspecified, first trimester
CPT/HCPCS: 76700; 76817; 80048; 81001; 84702; 84703; 85025; 86901; 87086; 87210; 87491; 87591

== ENCOUNTER 2018-02-05 09:52 | Emergency (ER) | payer SELFPAY ==
[~2018-02-05 09:52] MED LIST changes: +MACR100C2 PO; +TYLE325T PO
[2018-02-05] MEDS ORDERED: BACT800T5 PO (12:05)
--- NOTE | 2018-02-05 12:08 | PD ---
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 This patient complains of lesions in her groin and vaginal area. Duration 4-5 days. Severity is moderate. No fever. No vaginal discharge or bleeding. She is not PFSH Past Medical History Diminished Hearing: No Seizures: Yes ?: Not LMP: 01/29/18 Social History Alcohol Use: No Tobacco Use: No Substance Use: No Allergies-Medications (Allergen,Severity, Reaction): Coded Allergies: penicillin G (Verified Allergy, Severe, 12/05/17) Reported Meds & Prescriptions Reported Meds & Active Scripts Active Bactrim DS (Sulfamethoxazole-Trimethoprim) 800-160 Mg Tab 1 Tab PO BID Review of Systems General / Constitutional: No: Fever HENT: No: Headaches Cardiovascular: No: Chest Pain or Discomfort Gastrointestinal: No: Vomiting Physical Exam Narrative GASTROINTESTINAL: Abdomen soft, non-tender, nondistended. Positive bowel sounds. No hepato-splenomegaly, or palpable masses. No guarding. Psych: Normal mood and affect. Normal insight and judgment. : There are several skin lesions on the vulva and groin. They look like tiny little pustules or folliculitis. They do not look like HSV lesions. I do not see any vesicles. Data Data Orders Orders Ed Discharge Order (02/05/18 12:05) MDM Medical Decision Making Medical Screen Exam Complete: Yes Emergency Medical Condition: Yes Medical Record Reviewed: Yes Differential Diagnosis Folliculitis, abscess, cellulitis, HSV Narrative Course I have reviewed the patient's electronic medical record. Recommend warm compresses and one week of Bactrim DS The patient was advised to follow up with their physician and return if they worsen. Diagnosis Primary Impression: Infected skin lesion Additional Instructions: The patient was advised to follow up with their physician and return if they worsen. Med/Other Pt SpecificInfo: Prescription(s) given Scripts Sulfamethoxazole-Trimethoprim (Bactrim DS) 800-160 Mg Tab 1 TAB PO BID for Infection, #14 TAB 0 Refills Prov: Fernando Bee MD 02/05/18 Disposition: 01 DISCHARGE HOME Condition: Stable Fernando Bee MD Feb 05, 2018 12:08
== END 2018-02-05 12:18 | disposition home or self-care (01) ==
LOC: NEPD 09:52
DX: L98.8 Other specified disorders of the skin and subcutaneous tissue (principal); R56.9 Unspecified convulsions; Z88.0 Allergy status to penicillin
CPT/HCPCS: 99283

== ENCOUNTER 2018-02-26 12:30 | Emergency (ER) | payer SELFPAY ==
[~2018-02-26] VITALS: Ht 162.6 cm; Wt 104.5 kg
[~2018-02-26 12:30] MED LIST changes: +BACT800T5 PO; -DILA100C PO; -IBUP-232 PO; -MACR100C2 PO; -TYLE325T PO
[2018-02-26 12:39] VITALS: BP 114/63; PULSE 105; RESP 20; TEMP 98.2; O2SAT 97
[2018-02-26] MEDS ORDERED: ONDANSETRON HCL 4 MG/2 ML VIAL IV PUSH ONE (13:00)
[2018-02-26] MEDS ORDERED: SODIUM CHLORIDE 0.9% FLUSH 10 ML FLUSH IVF PRN (13:00)
[2018-02-26] MEDS ORDERED: PHENYTOIN INJ 1,000 MG in SODIUM CHLORIDE 0.9% INJ 100 ML IV ONE (13:00)
[2018-02-26] MEDS ORDERED: ACETAMINOPHEN 325 MG TAB PO ONE (13:00)
--- NOTE | 2018-02-26 13:00 | PD ---
HPI Chief Complaint: Seizure Time Seen by Provider: 12:55 Travel History International Travel<30 days: No Contact w/Intl Traveler<30days: No Traveled to known affect area: No History of Present Illness HPI This is a 27-year-old female with history of seizure disorder who presents by private vehicle with her sister for evaluation of a seizure. The sister reports that she heard the patient having a seizure through her bedroom wall. She hurt her shaking on the bed and then she heard a thump, presumably rolling off of the bed. She heard the seizure act last for approximately 10 minutes. Eventually the patient open her bedroom door so that the sister could enter. The patient reports that she does not recall these events. The patient has a history of seizure disorder, typically takes Dilantin and she reports that the Dilantin is typically therapeutic however she ran out 4-6 weeks ago. She does not have a local primary care physician or neurologist, reports that she moved here from [place] 8 months ago. She is complaining of a headache, nausea and dizziness, presumably from falling from the bed onto the ground. Headache is generalized and throbbing with no aggravating or relieving factors. She denies any tongue biting, incontinence, pain in the extremities, chest or abdomen or back or neck. She denies any illicit drug use. She denies any alcohol use. She has no other complaints at this time. [facility] Past Medical History Diminished Hearing: No Seizures: Yes ?: Not LMP: on now Social History Alcohol Use: No Tobacco Use: No Substance Use: No Allergies-Medications (Allergen,Severity, Reaction): Coded Allergies: penicillin G (Verified Allergy, Severe, 12/05/17) Reported Meds & Prescriptions Reported Meds & Active Scripts Active Dilantin (Phenytoin Extended) 100 Mg Cap 100 Mg PO TID Bactrim DS (Sulfamethoxazole-Trimethoprim) 800-160 Mg Tab 1 Tab PO BID Review of Systems Except as stated in HPI: all other systems reviewed are Neg Physical Exam Narrative GENERAL: Well-developed well-nourished female in no acute distress. SKIN: Warm and dry. HEAD: Atraumatic. Normocephalic. EYES: Pupils equal and round. No scleral icterus. No injection or drainage. ENT: No nasal bleeding or discharge. Mucous membranes pink and moist. NECK: Trachea midline. No JVD. CARDIOVASCULAR: Regular rate and rhythm. No murmur appreciated. RESPIRATORY: No accessory muscle use. Clear to auscultation. Breath sounds equal bilaterally. GASTROINTESTINAL: Abdomen soft, non-tender, nondistended. Hepatic and splenic margins not palpable. MUSCULOSKELETAL: No obvious deformities. No clubbing. No cyanosis. No edema. NEUROLOGICAL: Awake and alert. No obvious cranial nerve deficits. Motor grossly within normal limits. Normal speech. PSYCHIATRIC: Appropriate mood and affect; insight and judgment normal. Data Data Last Documented VS Vital Signs Date Time Temp Pulse Resp B/P (MAP) Pulse Ox O2 Delivery O2 Flow Rate FiO2 02/26/18 13:33 100 Room Air 02/26/18 12:39 98.2 105 20 114/63 (80) Orders Orders Complete Blood Count With Diff (02/26/18 12:55) Basic Metabolic Panel (Bmp) (02/26/18 12:55) Ct Brain W/O Iv Contrast(Rout) (02/26/18 ) Blood Glucose (02/26/18 12:55) Iv Access Insert/Monitor (02/26/18 12:55) Ed Urine Pregnancytest Poc (02/26/18 12:55) Ecg Monitoring (02/26/18 12:55) Oximetry (02/26/18 12:55) Sodium Chloride 0.9% Flush (Ns Flush) (02/26/18 13:00) Phenytoin Inj (Dilantin Inj) (02/26/18 13:00) Acetaminophen (Tylenol) (02/26/18 13:00) Ondansetron Inj (Zofran Inj) (02/26/18 13:00) Metronidazole (Flagyl) (02/26/18 14:30) Mri Brain W&W/O Contrast (02/26/18 ) Gadodiamide Pf Inj (Omniscan Pf Inj) (02/26/18 17:40) Ed Discharge Order (02/26/18 18:29) Labs Laboratory Tests Test 02/26/18 13:00 White Blood Count 6.9 TH/MM3 Red Blood Count 5.30 MIL/MM3 Hemoglobin 12.4 GM/DL Hematocrit 39.1 % Mean Corpuscular Volume 73.9 FL Mean Corpuscular Hemoglobin 23.3 PG Mean Corpuscular Hemoglobin Concent 31.6 % Red Cell Distribution Width 15.0 % Platelet Count 359 TH/MM3 Mean Platelet Volume 8.5 FL Neutrophils (%) (Auto) 67.9 % Lymphocytes (%) (Auto) 22.1 % Monocytes (%) (Auto) 6.9 % Eosinophils (%) (Auto) 2.6 % Basophils (%) (Auto) 0.5 % Neutrophils # (Auto) 4.7 TH/MM3 Lymphocytes # (Auto) 1.5 TH/MM3 Monocytes # (Auto) 0.5 TH/MM3 Eosinophils # (Auto) 0.2 TH/MM3 Basophils # (Auto) 0.0 TH/MM3 CBC Comment DIFF FINAL Differential Comment Blood Urea Nitrogen 9 MG/DL Creatinine 0.95 MG/DL Random Glucose 131 MG/DL Calcium Level 9.3 MG/DL Sodium Level 140 MEQ/L Potassium Level 4.3 MEQ/L Chloride Level 107 MEQ/L Carbon Dioxide Level 25.9 MEQ/L Anion Gap 7 MEQ/L Estimat Glomerular Filtration Rate 84 ML/MIN MDM Medical Decision Making Medical Screen Exam Complete: Yes Emergency Medical Condition: Yes Medical Record Reviewed: Yes Differential Diagnosis Breakthrough seizure, medication noncompliance, hypoglycemia, electrolyte abnormality, closed head injury Narrative Course 27-year-old female with history of seizure disorder presents for evaluation after seizure today. She reports that Dilantin typically controls her seizures however she ran out 4-6 weeks ago and has no local primary care physician. She rolled off of her bed and is complaining of a generalized throbbing headache, nausea and dizziness and therefore CT the brain has been ordered. CT the brain reveals CONCLUSION: 1. Enlarged sella turcica with empty sella appearance which can be seen with intracranial hypertension and pseudotumor cerebri 2. Otherwise normal exam without evidence of intra-axial abnormality. The patient has no symptoms of chronic headache, diplopia, blurred vision to suggest pseudotumor cerebra. Discussed with geraldine Mahoney PA-C recreation officer for Dr. Hussein who discussed with Dr. Hussein and feels that this patient does not require any neurosurgery consultation and recommends neurology consultation. Discussed with neurologist Dr. Miller who would like an MRI of the brain with and without contrast and if normal the patient can be discharged. MRI reveals an empty sella, otherwise no abnormalities. I discussed the results of this with Dr. Miller he reports that the patient can be treated for her seizures and follow-up on an outpatient basis. Discussed these recommendations with the patient in great detail. She will be given a refill of her Dilantin. She is stable for discharge. Diagnosis Primary Impression: Seizure Additional Instructions: No driving, operating heavy machinery for 6 months from the date of your most recent seizure which is today. Medication as prescribed. Follow-up with a neurologist. Return for any emergent medical conditions. Med/Other Pt SpecificInfo: Prescription(s) given Scripts Phenytoin Extended (Dilantin) 100 Mg Cap 100 MG PO TID for Control Seizures, #90 CAP 0 Refills Prov: Roseann Galindo MD 02/26/18 Disposition: 01 DISCHARGE HOME Condition: Stable Venkat Krishna Feb 26, 2018 13:00
[2018-02-26 13:33] VITALS: O2SAT 100
[2018-02-26 13:37] LABS: AUTOMATED NEUTROPHIL # 4.7 TH/MM3 (1.8-7.7); BASOPHIL % 0.5 % (0.0-2.0); EOSINOPHIL # 0.2 TH/MM3 (0-0.4); EOSINOPHIL % 2.6 % (0.0-4.0); HEMATOCRIT 39.1 % (35.0-46.0); HEMOGLOBIN 12.4 GM/DL (11.6-15.3); LYMPH % 22.1 % (9.0-44.0); LYMPHOCYTE # 1.5 TH/MM3 (1.0-4.8); MEAN CELL VOLUME 73.9 FL (80.0-100.0); MEAN CORPUSCULAR HEMOGLOBIN 23.3 PG (27.0-34.0); MEAN CORPUSCULAR HGB CONC 31.6 % (32.0-36.0); MEAN PLATELET VOLUME 8.5 FL (7.0-11.0); MONO % 6.9 % (0.0-8.0); MONOCYTE # 0.5 TH/MM3 (0-0.9); NEUT % 67.9 % (16.0-70.0); PLATELET COUNT 359 TH/MM3 (150-450); WHITE BLOOD COUNT 6.9 TH/MM3 (4.0-11.0)
--- NOTE | 2018-02-26 14:00 | RADRPT ---
EXAM DATE/TIME: 02/26/2018 13:42 [facility] COMPARISON: No previous studies available for comparison. INDICATIONS : Seizure, cephalgia. RADIATION DOSE: 38.65 CTDIvol (mGy) MEDICAL HISTORY : Seizures. SURGICAL HISTORY : None. ENCOUNTER: Initial ACUITY: 1 day PAIN SCALE: 4/10 LOCATION: Bilateral cranial TECHNIQUE: Multiple contiguous axial images were obtained of the head. Using automated exposure control and adj ustment of the mA and/or kV according to patient size, radiation dose was kept as low as reasonably a chievable to obtain optimal diagnostic quality images. DICOM format image data is available electro nically for review and comparison. FINDINGS: CEREBRUM: The ventricles are normal for age. No evidence of midline shift, mass lesion, hemorrhage or acute in farction. No extra-axial fluid collections are seen. The sella turcica is enlarged measuring 1.6 cm in AP dimension. The contents is hypodense suggesting large empty sella. POSTERIOR FOSSA: The cerebellum and brainstem are intact. The 4th ventricle is midline. The cerebellopontine angle i s unremarkable. EXTRACRANIAL: The visualized portion of the orbits is intact. SKULL: The calvaria is intact. No evidence of skull fracture. CONCLUSION: 1. Enlarged sella turcica with empty sella appearance which can be seen with intracranial hypertensio n and pseudotumor cerebri 2. Otherwise normal exam without evidence of intra-axial abnormality. Karlos Robertson MD on February 26, 2018 at 13:46 Board Certified Radiologist. This report was verified electronically.
[2018-02-26 14:05] LABS: BICARBONATE 25.9 MEQ/L (21.0-32.0); CALCIUM 9.3 MG/DL (8.5-10.1); CREATININE 0.95 MG/DL (0.50-1.00)
[2018-02-26] MEDS ORDERED: metroNIDAZOLE 500 MG TAB PO ONE (14:30)
[2018-02-26] MEDS ORDERED: GADODIAMIDE PF 287 MG/ML 20 ML VIAL (for RAD MRI) IVCONTRAST ONE (17:40)
--- NOTE | 2018-02-26 18:11 | RADRPT ---
EXAM DATE/TIME: 02/26/2018 17:20 [facility] COMPARISON: CT BRAIN W/O CONTRAST, February 26, 2018, 13:42. INDICATIONS : Enlarged sella turcica and headache and possible seizure today. CONTRAST: 20 cc Omniscan (gadodiamide) IV MEDICAL HISTORY : Seizures. SURGICAL HISTORY : None. ENCOUNTER: Initial ACUITY: 1 day PAIN SCORE: 2/10 LOCATION: Bilateral cranial TECHNIQUE: Multiplanar, multisequence MRI of the brain was performed both prior to and following the administrat ion of paramagnetic contrast. FINDINGS: CEREBRUM: The ventricles are normal for age. No evidence of midline shift, mass lesion, hemorrhage or acute in farction. No extraaxial fluid collections are seen. Prominent CSF space within the sella. Normal-neto earing pituitary gland is not seen. WHITE MATTER: No significant signal abnormalities are seen in the white matter. POSTERIOR FOSSA: The cerebellum and brainstem are intact. The 4th ventricle is midline. The cerebellopontine angle is unremarkable. The cerebellar tonsils are normal in position. DIFFUSION IMAGING: No focal areas of restricted diffusion are seen. No evidence of acute infarction. EXTRACRANIAL: The visualized portions of the orbits and paranasal sinuses are unremarkable. POST-CONTRAST: No abnormal areas of parenchymal or dural enhancement. No evidence of blood-brain barrier breakdown. CONCLUSION: 1. Empty sella. 2. Otherwise unremarkable MRI of the brain. Twin Rivas MD on February 26, 2018 at 18:06 Board Certified Radiologist. This report was verified electronically.
--- NOTE | 2018-02-26 18:22 | PD ---
Physical Exam Date Seen by Provider: Feb 26, 2018 Time Seen by Provider: 16:00 Narrative I, Dr. Galindo, have reviewed the advance practice practitioner's documentation and am in agreement, met with the patient face to face, made the diagnosis, and the medical decision making was done by me. *My assessment and Findings: Patient seen and evaluated with PA, please see PA notes for further details, had a seizure today, has not had her seizure medications, complaining of headache, apparently did fall and hit her head. Lab work and CAT scan was initially ordered. Laboratory Tests Test 02/26/18 13:00 Mean Corpuscular Volume 73.9 FL (80.0-100.0) Mean Corpuscular Hemoglobin 23.3 PG (27.0-34.0) Mean Corpuscular Hemoglobin Concent 31.6 % (32.0-36.0) Random Glucose 131 MG/DL (74-106) Estimat Glomerular Filtration Rate 84 ML/MIN (>89) Last [address] 02/26/18 0000 Signed Impressions: Service Date/Time: Monday, February 26, 2018 13:42 - CONCLUSION: 1. Enlarged sella turcica with empty sella appearance which can be seen with intracranial hypertension and pseudotumor cerebri 2. Otherwise normal exam without evidence of intra-axial abnormality. Karlos Robertson MD Brain MRI 02/26/18 0000 Signed Impressions: Service Date/Time: Monday, February 26, 2018 17:20 - CONCLUSION: 1. Empty sella. 2. Otherwise unremarkable MRI of the brain. Twin Rivas MD Initial CT shows a empty sella, questionable for intracranial hypertension or pseudotumor cerebrii, MRI was ordered for further evaluation and characterization after case was briefly discussed with neurology. She states that the patient can be released with follow-up to neurology and primary care physician with further seizure treatment. Return for new issues as needed. Data Data Last Documented VS Vital Signs Date Time Temp Pulse Resp B/P (MAP) Pulse Ox O2 Delivery O2 Flow Rate FiO2 02/26/18 13:33 100 Room Air 02/26/18 12:39 98.2 105 20 114/63 (80) Orders Orders Complete Blood Count With Diff (02/26/18 12:55) Basic Metabolic Panel (Bmp) (02/26/18 12:55) Ct Brain W/O Iv Contrast(Rout) (02/26/18 ) Blood Glucose (02/26/18 12:55) Iv Access Insert/Monitor (02/26/18 12:55) Ed Urine Pregnancytest Poc (02/26/18 12:55) Ecg Monitoring (02/26/18 12:55) Oximetry (02/26/18 12:55) Sodium Chloride 0.9% Flush (Ns Flush) (02/26/18 13:00) Phenytoin Inj (Dilantin Inj) (02/26/18 13:00) Acetaminophen (Tylenol) (02/26/18 13:00) Ondansetron Inj (Zofran Inj) (02/26/18 13:00) Metronidazole (Flagyl) (02/26/18 14:30) Mri Brain W&W/O Contrast (02/26/18 ) Gadodiamide Pf Inj (Omniscan Pf Inj) (02/26/18 17:40) Labs Laboratory Tests Test 02/26/18 13:00 White Blood Count 6.9 TH/MM3 Red Blood Count 5.30 MIL/MM3 Hemoglobin 12.4 GM/DL Hematocrit 39.1 % Mean Corpuscular Volume 73.9 FL Mean Corpuscular Hemoglobin 23.3 PG Mean Corpuscular Hemoglobin Concent 31.6 % Red Cell Distribution Width 15.0 % Platelet Count 359 TH/MM3 Mean Platelet Volume 8.5 FL Neutrophils (%) (Auto) 67.9 % Lymphocytes (%) (Auto) 22.1 % Monocytes (%) (Auto) 6.9 % Eosinophils (%) (Auto) 2.6 % Basophils (%) (Auto) 0.5 % Neutrophils # (Auto) 4.7 TH/MM3 Lymphocytes # (Auto) 1.5 TH/MM3 Monocytes # (Auto) 0.5 TH/MM3 Eosinophils # (Auto) 0.2 TH/MM3 Basophils # (Auto) 0.0 TH/MM3 CBC Comment DIFF FINAL Differential Comment Blood Urea Nitrogen 9 MG/DL Creatinine 0.95 MG/DL Random Glucose 131 MG/DL Calcium Level 9.3 MG/DL Sodium Level 140 MEQ/L Potassium Level 4.3 MEQ/L Chloride Level 107 MEQ/L Carbon Dioxide Level 25.9 MEQ/L Anion Gap 7 MEQ/L Estimat Glomerular Filtration Rate 84 ML/MIN [facility] Medical Record Reviewed: Yes Supervised Visit with MORALES: Yes Diagnosis Primary Impression: Seizure Additional Impression: Subtherapeutic serum dilantin level Scripts Phenytoin Extended (Dilantin) 100 Mg Cap 100 MG PO TID for Control Seizures, #90 CAP 0 Refills Prov: Roseann Galindo MD 02/26/18 Disposition: 01 DISCHARGE HOME Condition: Stable Roseann Galindo MD Feb 26, 2018 18:22
[2018-02-26] MEDS ORDERED: DILA100C PO (18:28)
== END 2018-02-26 19:15 | disposition home or self-care (01) ==
LOC: NEPE 12:30
DX: G40.909 Epilepsy, unspecified, not intractable, without status epilepticus (principal)
CPT/HCPCS: 70450; 70553; 80048; 84703; 85025; 96365; 96375; 99284; A9579; J1165; J2405

== ENCOUNTER 2018-06-09 10:04 | Observation (INO) ==
[2018-06-09] MEDS ORDERED: Sod Chloride 0.9% Inj 1,000 ML IV.SIG ONE ×2 (10:24→12:42)
[2018-06-09 10:54] LABS: Baso % (Auto) 0.5 % (0.0-2.0); Eos # (Auto) 0.2 th/mm3 (0.0-0.4); Eos % (Auto) 2.3 % (0.0-4.0); Hematocrit 37.8 % (35.0-46.0); Hemoglobin 11.9 gm/dL (11.6-15.3); Lymph # (Auto) 2.4 th/mm3 (1.0-4.8); Lymph % (Auto) 29.3 % (9.0-44.0); Mean Corpuscular HGB Conc 31.6 % (32.0-36.0); Mean Corpuscular Hemoglobin 23.5 pg (27.0-34.0); Mean Corpuscular Volume 74.4 fL (80.0-100.0); Mean Platelet Volume 8.8 fL (7.0-11.0); Mono # (Auto) 0.7 th/mm3 (0.0-0.9); Mono % (Auto) 8.3 % (0.0-8.0); Neut # (Auto) 4.8 th/mm3 (1.8-7.7); Neut % (Auto) 59.6 % (16.0-70.0); Platelet Count 331 th/mm3 (150-450); Red Blood Count 5.09 mil/mm3 (4.00-5.30); Red Cell Distribution Width 15.4 % (11.6-17.2)
--- NOTE | 2018-06-09 10:56 | XR ---
EXAM DATE: 06/09/2018 10:45 AM EDT AGE/SEX: 27 years / Female INDICATIONS: Seizure CLINICAL DATA: This is the patient's initial encounter. Patient reports that signs and symptoms have been present for 1 day and indicates a pain score of 0/10. MEDICAL/SURGICAL HISTORY: None. None. COMPARISON: [facility] [place], 05/09/2018. . FINDINGS: The lungs are clear without infiltrate, nodule, or mass. There is no appreciable pleural effusion for technique. Heart and mediastinum are unremarkable. CONCLUSION: No acute cardiopulmonary disease. Electronically signed by: Syl Sidhu MD 06/09/2018 10:54 AM EDT
[2018-06-09 11:10] LABS: Albumin 3.5 g/dL (3.4-5.0); Anion Gap 8 meq/L (5-15); Aspartate Aminotransferase 29 U/L (15-37); Blood Urea Nitrogen 9 mg/dL (7-18); Carbon Dioxide 20.8 meq/L (21.0-32.0); Chloride 110 meq/L (98-107); Glomerular Filtration Rate 76 mL/min (>89); Glucose,Random 122 mg/dL (74-106); Sodium 139 meq/L (136-145)
[2018-06-09 11:12] LABS: Alanine Aminotransferase 36 U/L (10-53)
[2018-06-09 11:14] LABS: Alkaline Phosphatase 81 U/L (45-117); Creatine Kinase 365 U/L (26-192); Total Protein 7.5 g/dL (6.4-8.2)
[2018-06-09 12:00] LABS: CKMB Percent 0.7 % (0.0-4.0); Creatine Kinase MB 2.4 ng/mL (0.5-3.6)
[2018-06-09] MEDS ORDERED: PHENYTOIN IV.SIG ONE (12:44)
[2018-06-09] MEDS ORDERED: SODIUM CHLOR 0.9% IV.SIG ONE (12:44)
--- NOTE | 2018-06-09 12:49 | ED ---
HPI General Chief Complaint: Seizure Stated Complaint: Seizures Time Seen by Provider: 06/09/18 10:24 Source: patient and EMS Mode of arrival: EMS History of Present Illness HPI Narrative: The patient is a 27-year-old female with seizure disorder on Dilantin claims that she takes it daily and as the way she supposed to be it was brought in after she had a witnessed seizure by her sister at home that lasted about 10 minutes per EMS report. The patient was postictal briefly but by the time she came to the emergency department she was alert and oriented. Per reports she was laying in bed and sleeping when her seizure started. The patient supposed to take Dilantin 100 mg p.o. 3 times daily however it appears that she only takes it sometimes at night when she feels she needs it to sleep. MD complaint: seizure Duration of episode: 3 -: minutes(s) Witnessed: yes - by other (Her sister) Trauma: No Seizure History: known seizure disorder Place: home Possible Precipitating Event: medication (Noncompliant) Associated symptoms: confusion Related Data Home Medications Medication Instructions Recorded Confirmed phenytoin sodium extended 100 mg PO TID 06/09/18 06/09/18 [Dilantin] Allergies Allergy/AdvReac Type Severity Reaction Status Date / Time penicillin G Allergy Severe Cough Verified 06/09/18 10:12 Review of Systems ROS Unobtainable All other systems reviewed negative except as stated in HPI [facility] Medical History Medical History Seizure (Acute) Social History Social History Substance History: No History of Abuse Second Hand Smoke Exposure: No Smoking Status: Never smoker How Often Do You Have a Drink Containing Alcohol: Monthly or less Recent Travel in [facility] within the Last 8 Weeks: No Recent Out of Country Travel within the Last 8 Weeks: No Immunization History Tetanus Immunization: Unsure Hx Influenza Vaccine This Season: No Exam Narrative Exam Narrative: GENERAL: Alert and oriented no distress appears slightly confused from recent seizure but does not postictal. SKIN: Focused skin assessment warm/dry. HEAD: Atraumatic. Normocephalic. EYES: Pupils equal and round. No scleral icterus. No injection or drainage. ENT: No nasal bleeding or discharge. Mucous membranes pink and moist. NECK: Trachea midline. No JVD. CARDIOVASCULAR: Regular rate and rhythm. No murmur appreciated. RESPIRATORY: No accessory muscle use. Clear to auscultation. Breath sounds equal bilaterally. GASTROINTESTINAL: Abdomen soft, non-tender, nondistended. Hepatic and splenic margins not palpable. MUSCULOSKELETAL: No obvious deformities. No clubbing. No cyanosis. No edema. NEUROLOGICAL: Awake and alert. No obvious cranial nerve deficits. Motor grossly within normal limits. Normal speech. PSYCHIATRIC: Appropriate mood and affect; insight and judgment normal. Course Hospital Course: Resting comfortably no distress. Initial Documented Vital Signs Temperature 98.2 F 06/09/18 10:08 Pulse Rate 94 H 06/09/18 10:08 Respiratory Rate 16 06/09/18 10:08 Blood Pressure 124/70 06/09/18 10:08 Pulse Oximetry 96 06/09/18 10:08 Last Documented Vital Signs Temperature 98.2 F 06/09/18 10:08 Pulse Rate 68 06/09/18 12:27 Respiratory Rate 18 06/09/18 12:27 Blood Pressure 98/50 L 06/09/18 12:27 Pulse Oximetry 98 06/09/18 12:27 Medical Decision Making MDM Narrative Medical decision making narrative: Patient now subtherapeutic Dilantin levels. She was given a loading dose. No signs of infectious process is more than likely seizure was secondary to noncompliance. CT head was not obtained to the fact that the patient had a seizure while in bed and she has a known seizure. No signs of infectious process precipitating seizure. POC Test Results POC Urine Results: Negative Lab Data Lab results reviewed: Yes I reviewed the patient's lab results. Result diagrams: 06/09/18 10:37 06/09/18 10:37 Lab Results 06/09/18 06/09/18 06/09/18 Range/Units 10:37 10:37 12:14 WBC 8.0 (4.0-11.0) th/mm3 RBC 5.09 (4.00-5.30) mil/mm3 Hgb 11.9 (11.6-15.3) gm/dL Hct 37.8 (35.0-46.0) % MCV 74.4 L (80.0-100.0) fL MCH 23.5 L (27.0-34.0) pg MCHC 31.6 L (32.0-36.0) % RDW 15.4 (11.6-17.2) % Plt Count 331 (150-450) th/mm3 MPV 8.8 (7.0-11.0) fL Neut % (Auto) 59.6 (16.0-70.0) % Lymph % (Auto) 29.3 (9.0-44.0) % [place] % (Auto) 8.3 H (0.0-8.0) % Eos % (Auto) 2.3 (0.0-4.0) % Baso % (Auto) 0.5 (0.0-2.0) % Neut # (Auto) 4.8 (1.8-7.7) th/mm3 Lymph # (Auto) 2.4 (1.0-4.8) th/mm3 [place] # (Auto) 0.7 (0.0-0.9) th/mm3 Eos # (Auto) 0.2 (0.0-0.4) th/mm3 Baso # (Auto) 0.0 (0.0-0.2) th/mm3 WBC Differential . Differential Comment Auto diff final Sodium 139 (136-145) meq/L Potassium 4.0 (3.5-5.1) meq/L Chloride 110 H (98-107) meq/L Carbon Dioxide 20.8 L (21.0-32.0) meq/L Anion Gap 8 (5-15) meq/L BUN 9 (7-18) mg/dL Creatinine 1.04 H (0.50-1.00) mg/dL Estimated GFR 76 L (>89) mL/min Random Glucose 122 H (74-106) mg/dL Calcium 9.0 (8.5-10.1) mg/dL Total Bilirubin 0.1 L (0.2-1.0) mg/dL AST 29 (15-37) U/L ALT 36 (10-53) U/L Alkaline Phosphatase 81 (45-117) U/L Total Creatine Kinase 365 H (26-192) U/L CK-MB (CK-2) 2.4 (0.5-3.6) ng/mL CK-MB (CK-2) % 0.7 (0.0-4.0) % Total Protein 7.5 (6.4-8.2) g/dL Albumin 3.5 (3.4-5.0) g/dL Urine Color (Yellw/Straw) Urine Clarity (Clear) Urine pH (5.0-8.5) Ur Specific [place] (1.002-1.035) Urine Protein (Neg-Trace) mg/dL Urine Glucose (UA) (Negative) mg/dL Urine Ketones (Negative) mg/dL Urine Occult Blood (Negative) Urine Nitrate (Negative) Urine Bilirubin (Negative) Urine Urobilinogen (Less than 2) mg/dL Ur Leukocyte Esterase (Negative) Urine RBC (0-3) /hpf Urine WBC (0-5) /hpf Uric Acid Crystals (None) /hpf Urine Bacteria (None) /hpf Urine Mucus (Occasional) /lpf Micro UA Comment Urine Culture Comments Urine Opiates Screen Neg (Neg) Ur Barbiturates Screen Neg (Neg) Phenytoin Less than 0.4 L (10.0-20.0) mcg/mL Ur Amphetamines Screen Neg (Neg) U Benzodiazepines Scrn Neg (Neg) Urine Cocaine Screen Neg (Neg) U Cannabinoids Screen Neg (Neg) 06/09/18 Range/Units 12:14 WBC (4.0-11.0) th/mm3 RBC (4.00-5.30) mil/mm3 Hgb (11.6-15.3) gm/dL Hct (35.0-46.0) % MCV (80.0-100.0) fL MCH (27.0-34.0) pg MCHC (32.0-36.0) % RDW (11.6-17.2) % Plt Count (150-450) th/mm3 MPV (7.0-11.0) fL Neut % (Auto) (16.0-70.0) % Lymph % (Auto) (9.0-44.0) % [place] % (Auto) (0.0-8.0) % Eos % (Auto) (0.0-4.0) % Baso % (Auto) (0.0-2.0) % Neut # (Auto) (1.8-7.7) th/mm3 Lymph # (Auto) (1.0-4.8) th/mm3 [place] # (Auto) (0.0-0.9) th/mm3 Eos # (Auto) (0.0-0.4) th/mm3 Baso # (Auto) (0.0-0.2) th/mm3 WBC Differential Differential Comment Sodium (136-145) meq/L Potassium (3.5-5.1) meq/L Chloride (98-107) meq/L Carbon Dioxide (21.0-32.0) meq/L Anion Gap (5-15) meq/L BUN (7-18) mg/dL Creatinine (0.50-1.00) mg/dL Estimated GFR (>89) mL/min Random Glucose (74-106) mg/dL Calcium (8.5-10.1) mg/dL Total Bilirubin (0.2-1.0) mg/dL AST (15-37) U/L ALT (10-53) U/L Alkaline Phosphatase (45-117) U/L Total Creatine Kinase (26-192) U/L CK-MB (CK-2) (0.5-3.6) ng/mL CK-MB (CK-2) % (0.0-4.0) % Total Protein (6.4-8.2) g/dL Albumin (3.4-5.0) g/dL Urine Color Yellow (Yellw/Straw) Urine Clarity Cloudy H (Clear) Urine pH 5.0 (5.0-8.5) Ur Specific [place] 1.013 (1.002-1.035) Urine Protein Negative (Neg-Trace) mg/dL Urine Glucose (UA) Negative (Negative) mg/dL Urine Ketones Negative (Negative) mg/dL Urine Occult Blood Large H (Negative) Urine Nitrate Negative (Negative) Urine Bilirubin Negative (Negative) Urine Urobilinogen Less than 2 (Less than 2) mg/dL Ur Leukocyte Esterase Negative (Negative) Urine RBC 92 H (0-3) /hpf Urine WBC 1 (0-5) /hpf Uric Acid Crystals Rare H (None) /hpf Urine Bacteria Rare H (None) /hpf Urine Mucus Few H (Occasional) /lpf Micro UA Comment Culture not ind Urine Culture Comments Culture not ind Urine Opiates Screen (Neg) Ur Barbiturates Screen (Neg) Phenytoin (10.0-20.0) mcg/mL Ur Amphetamines Screen (Neg) U Benzodiazepines Scrn (Neg) Urine Cocaine Screen (Neg) U Cannabinoids Screen (Neg) Imaging Data Radiologist's impression: Chest X-Ray 06/09/18 10:24 CONCLUSION: No acute cardiopulmonary disease. Discharge Plan Discharge Disposition Patient Disposition: 30 Still Patient Discharge Condition Condition: Good Discharge Details Diagnosis: Seizure, Seizure secondary to subtherapeutic anticonvulsant medication Physicians Team ED Provider: Renard Franco Primary Care Provider: Primary Care Rhoda Palma Attending Provider: Samantha Vargas Discharge Interventions Interventions: Vital Signs Last Done: 06/09/18 12:27 Status ED Status: Admitted Observation Patient
[2018-06-09] MEDS ORDERED: Butalbital/APAP/Caff 50/325/40 MG Tablet PO ONE (13:20)
[2018-06-09 13:34] LABS: Bacteria,Urine Rare /hpf; Bilirubin,Urine Negative (Negative); Clarity,Urine Cloudy (Clear); Color,Urine Yellow (Yellw/Straw); Glucose,Urine (UA) Negative (Negative); Leukocyte Esterase,Urine Negative (Negative); Mucus,Urine Few /lpf (Occasional); Nitrite,Urine Negative (Negative); Specific Gravity,Urine 1.013 (1.002-1.035); Uric Acid Crystals,Urine Rare /hpf
[2018-06-09 14:20] LABS: Amphetamine Screen,Urine Neg (Neg); Barbiturate Screen,Urine Neg (Neg); Cannabinoid Screen,Urine Neg (Neg); Cocaine Screen,Urine Neg (Neg)
[2018-06-09 14:26] LABS: Opiate Screen,Urine Neg (Neg)
--- NOTE | 2018-06-09 17:54 | P.HP ---
[facility] Physician: No Primary Care Physician Chief Complaint: Seizures History of Present Illness: Patient is a very pleasant 27-year-old right-handed female with known history of seizure disorder on maintenance dose of Dilantin 100 mg 3 times a day was brought in by her sister this morning she was noted to have going to generalized tonic-clonic seizures early this morning during sleep. Per patient her seizures usually occurs when she is asleep. Her last seizure episode prior to this was in February. When asked about medication sheets as stated she takes Dilantin 100 mg 3 times a day but she admits to not taking it for the past 1 week. Patient denies any fever nausea vomiting neck pain. Patient was given loading dose of Dilantin and. Patient is now awake alert oriented 3. Admitted for observation. Review of Systems All other systems reviewed negative except as stated in HPI [facility] - History History Provided By: Patient - Medical History Medical History: Medical History (Last Reviewed 06/09/18 @ 12:50 by Renard Franco DO) Seizure - Tobacco History Second Hand Smoke Exposure: No Tobacco Use In Past 30 Days: No Smoking Status: Never smoker - Alcohol History How Often Do You Have a Drink Containing Alcohol: Monthly or less - Substance Use History Substance History: No History of Abuse - Travel History Recent Travel in the [place] Within the Last 8 Weeks: No Recent Travel Out of the Country Within the Last 8 Weeks: No - Immunization History Tetanus Immunization: Unsure Hx Influenza Vaccine This Season: No Medications and Allergies Active Medications: Active Medications Phenytoin Sodium (Dilantin) 100 mg PO Q8HR WALE Allergies Allergy/AdvReac Type Severity Reaction Status Date / Time penicillin G Allergy Severe Cough Verified 06/09/18 10:12 Home Medications Medication Instructions Recorded Confirmed Type phenytoin sodium extended 100 mg PO TID 06/09/18 06/09/18 History [Dilantin] Exam Vital signs: Vital Signs 06/09/18 10:08 06/09/18 10:12 06/09/18 10:41 Temperature 98.2 F Pulse Rate 94 H 97 H Respiratory Rate 16 14 Blood Pressure 124/70 124/70 Pulse Oximetry 96 96 97 06/09/18 12:27 06/09/18 16:45 Temperature 98.3 F Pulse Rate 68 74 Respiratory Rate 18 20 Blood Pressure 98/50 L 106/65 Pulse Oximetry 98 100 Intake & Output 06/08/18 06/09/18 06/09/18 18:59 06:59 18:59 Weight 113.398 kg Narrative: Awake alert oriented 3 not in any form of distress Anicteric sclerae pink palpebral conjunctivae No nuchal rigidity Chest lungs clear breath sounds no rales or wheezes Heart regular rhythm no murmur Abdomen is soft flabby nontender with good bowel sounds Extremities no edema no clubbing Neurological exam ANO 3 clear speech Cranial nerves intact Motor 5/5 on all extremities however there is definitely a mild very mild left decreased hand sport intern and strength. Per patient this is baseline-"for years". Denies any history of CVA though. Gait steady. Grossly no sensory deficits Results - Labs CBC & Chem 7: 06/09/18 10:37 06/09/18 10:37 Labs: Laboratory Results - last 24 hr 06/09/18 06/09/18 06/09/18 10:37 10:37 12:14 WBC 8.0 RBC 5.09 Hgb 11.9 Hct 37.8 MCV 74.4 L MCH 23.5 L MCHC 31.6 L RDW 15.4 Plt Count 331 MPV 8.8 Neut % (Auto) 59.6 Lymph % (Auto) 29.3 [place] % (Auto) 8.3 H Eos % (Auto) 2.3 Baso % (Auto) 0.5 Neut # (Auto) 4.8 Lymph # (Auto) 2.4 [place] # (Auto) 0.7 Eos # (Auto) 0.2 Baso # (Auto) 0.0 WBC Differential . Differential Comment Auto diff final Sodium 139 Potassium 4.0 Chloride 110 H Carbon Dioxide 20.8 L Anion Gap 8 BUN 9 Creatinine 1.04 H Estimated GFR 76 L Random Glucose 122 H Calcium 9.0 Total Bilirubin 0.1 L AST 29 ALT 36 Alkaline Phosphatase 81 Total Creatine Kinase 365 H CK-MB (CK-2) 2.4 CK-MB (CK-2) % 0.7 Total Protein 7.5 Albumin 3.5 Urine Color Urine Clarity Urine pH Ur Specific [place] Urine Protein Urine Glucose (UA) Urine Ketones Urine Occult Blood Urine Nitrate Urine Bilirubin Urine Urobilinogen Ur Leukocyte Esterase Urine RBC Urine WBC Uric Acid Crystals Urine Bacteria Urine Mucus Micro UA Comment Urine Culture Comments Urine Opiates Screen Neg Ur Barbiturates Screen Neg Phenytoin Less than 0.4 L Ur Amphetamines Screen Neg U Benzodiazepines Scrn Neg Urine Cocaine Screen Neg U Cannabinoids Screen Neg 06/09/18 12:14 WBC RBC Hgb Hct MCV MCH MCHC RDW Plt Count MPV Neut % (Auto) Lymph % (Auto) [place] % (Auto) Eos % (Auto) Baso % (Auto) Neut # (Auto) Lymph # (Auto) [place] # (Auto) Eos # (Auto) Baso # (Auto) WBC Differential Differential Comment Sodium Potassium Chloride Carbon Dioxide Anion Gap BUN Creatinine Estimated GFR Random Glucose Calcium Total Bilirubin AST ALT Alkaline Phosphatase Total Creatine Kinase CK-MB (CK-2) CK-MB (CK-2) % Total Protein Albumin Urine Color Yellow Urine Clarity Cloudy H Urine pH 5.0 Ur Specific [place] 1.013 Urine Protein Negative Urine Glucose (UA) Negative Urine Ketones Negative Urine Occult Blood Large H Urine Nitrate Negative Urine Bilirubin Negative Urine Urobilinogen Less than 2 Ur Leukocyte Esterase Negative Urine RBC 92 H Urine WBC 1 Uric Acid Crystals Rare H Urine Bacteria Rare H Urine Mucus Few H Micro UA Comment Culture not ind Urine Culture Comments Culture not ind Urine Opiates Screen Ur Barbiturates Screen Phenytoin Ur Amphetamines Screen U Benzodiazepines Scrn Urine Cocaine Screen U Cannabinoids Screen - Imaging Impressions Chest X-Ray 06/09/18 10:24 CONCLUSION: No acute cardiopulmonary disease. Caprini VTE Risk Assessment Caprini VTE Risk Assessment: No/Low Risk (score <= 1) Caprini Risk Assessment Model: Point Value = 1 Point Value = 2 Point Value = 3 Point Value = 5 Age 41-60 Minor surgery BMI > 25 kg/m2 Swollen legs Varicose veins or History of unexplained or recurrent spontaneous Oral contraceptives or hormone replacement Sepsis (< 1 month) Serious lung disease, including pneumonia (< 1 month) Abnormal pulmonary function Acute myocardial infarction Congestive heart failure (< 1 month) History of inflammatory bowel disease Medical patient at bed rest Age 61-74 Arthroscopic surgery Major open surgery (> 45 min) Laparoscopic surgery (> 45 min) Malignancy Confined to bed (> 72 hours) Immobilizing plaster cast Central venous access Age >= 75 History of VTE Family history of VTE Factor V Leiden Prothrombin [id number] Lupus anticoagulant Anticardiolipin antibodies Elevated serum homocysteine Heparin-induced thrombocytopenia Other congenital or acquired thrombophilia Stroke (< 1 month) Elective arthroplasty Hip, pelvis, or leg fracture Acute spinal cord injury (< 1 month) Prophylaxis Regimen: Total Risk Factor Score Risk Level Prophylaxis Regimen 0-1 Low Early ambulation 2 Moderate Order ONE of the following: *Sequential Compression Device (SCD) *Heparin 5000 units SQ BID 3-4 Higher Order ONE of the following medications: *Heparin 5000 units SQ TID *Enoxaparin/Lovenox 40 mg SQ daily (WT < 150 kg, CrCl > 30 mL/min) *Enoxaparin/Lovenox 30 mg SQ daily (WT < 150 kg, CrCl > 10-29 mL/min) *Enoxaparin/Lovenox 30 mg SQ BID (WT < 150 kg, CrCl > 30 mL/min) AND/OR *Sequential Compression Device (SCD) 5 or more Highest Order ONE of the following medications: *Heparin 5000 units SQ TID (Preferred with Epidurals) *Enoxaparin/Lovenox 40 mg SQ daily (WT < 150 kg, CrCl > 30 mL/min) *Enoxaparin/Lovenox 30 mg SQ daily (WT < 150 kg, CrCl > 10-29 mL/min) *Enoxaparin/Lovenox 30 mg SQ BID (WT < 150 kg, CrCl > 30 mL/min) AND *Sequential Compression Device (SCD) Assessment and Plan - Plan 27-year-old female presenting with Generalized tonic-clonic seizure witnessed with history of seizure disorder noncompliant with medications for 1 week Patient received IV loading dose Dilantin. Will start patient on Dilantin 100 mg q8 daily which is her home dose Check Dilantin level in a.m. No driving for 6 months, advise adequate sleep Mildly elevated CK possibly mild rhabdomyolysis from seizure Start patient on IV fluid hydration Repeat CK in a.m. Microscopic hematuria on UA. On questioning patient is currently on her cycles. Up and ambulate. Start diet. If stable discharge home tomorrow. Advise follow-up with her PCP-does not recall the PCPs name but per patient office in [facility]- she will let us know tomorrow.
[2018-06-09] MEDS: Phenytoin Sodium 100 MG Capsule PO SCH ×2 (18:24→23:10)
[2018-06-09] MEDS: Sod Chloride 0.9% Inj 1,000 ML IV.CONT SCH (23:10)
[2018-06-10] MEDS: Phenytoin Sodium 100 MG Capsule PO SCH (05:41)
[2018-06-10 07:21] LABS: CKMB Percent 0.7 % (0.0-4.0); Creatine Kinase MB 1.7 ng/mL (0.5-3.6)
--- NOTE | 2018-06-10 09:12 | P.PN ---
Subjective Interval history: F/U sz.. Patient has no complaints today he denies headache, dizziness and weakness. Patient was not taking her Dilantin as it was making her drowsy. She agrees to change dosing to 300 mg at bedtime. Dilantin level is 3.1 she needs IV Dilantin reloading Physical Exam Vital signs: Vital Signs 06/09/18 10:08 06/09/18 10:12 06/09/18 10:41 Temperature 98.2 F Pulse Rate 94 H 97 H Respiratory Rate 16 14 Blood Pressure 124/70 124/70 Pulse Oximetry 96 96 97 06/09/18 12:27 06/09/18 16:45 06/09/18 20:00 Temperature 98.3 F 98.3 F Pulse Rate 68 74 83 Respiratory Rate 18 20 15 Blood Pressure 98/50 L 106/65 132/70 Pulse Oximetry 98 100 99 06/10/18 00:00 06/10/18 04:00 06/10/18 08:00 Temperature 98.2 F 98.0 F 97.8 F Pulse Rate 81 76 66 Respiratory Rate 18 14 18 Blood Pressure 120/65 110/60 88/53 L Pulse Oximetry 99 98 100 Intake & Output 06/09/18 06/10/18 06/10/18 18:59 06:59 18:59 Weight 113.398 kg Narrative: GENERAL: Well-developed and well-nourished in no distress SKIN: Warm and dry. CARDIOVASCULAR: Regular rate and rhythm. RESPIRATORY: No accessory muscle use. Clear to auscultation. Breath sounds equal bilaterally. GASTROINTESTINAL: Abdomen soft, non-tender, nondistended. MUSCULOSKELETAL: Extremities without clubbing, cyanosis, or edema. No obvious deformities. NEUROLOGICAL: Awake and alert. No obvious cranial nerve deficits. Motor grossly within normal limits. Five out of 5 muscle strength in the arms and legs. Normal speech. PSYCHIATRIC: Appropriate mood and affect; insight and judgment normal. Results - Labs CBC & Chem 7: 06/09/18 10:37 06/09/18 10:37 Laboratory Results - last 24 hr 06/09/18 06/09/18 06/09/18 10:37 10:37 12:14 WBC 8.0 RBC 5.09 Hgb 11.9 Hct 37.8 MCV 74.4 L MCH 23.5 L MCHC 31.6 L RDW 15.4 Plt Count 331 MPV 8.8 Neut % (Auto) 59.6 Lymph % (Auto) 29.3 [place] % (Auto) 8.3 H Eos % (Auto) 2.3 Baso % (Auto) 0.5 Neut # (Auto) 4.8 Lymph # (Auto) 2.4 [place] # (Auto) 0.7 Eos # (Auto) 0.2 Baso # (Auto) 0.0 WBC Differential . Differential Comment Auto diff final Sodium 139 Potassium 4.0 Chloride 110 H Carbon Dioxide 20.8 L Anion Gap 8 BUN 9 Creatinine 1.04 H Estimated GFR 76 L Random Glucose 122 H Calcium 9.0 Total Bilirubin 0.1 L AST 29 ALT 36 Alkaline Phosphatase 81 Total Creatine Kinase 365 H CK-MB (CK-2) 2.4 CK-MB (CK-2) % 0.7 Total Protein 7.5 Albumin 3.5 Urine Color Urine Clarity Urine pH Ur Specific [place] Urine Protein Urine Glucose (UA) Urine Ketones Urine Occult Blood Urine Nitrate Urine Bilirubin Urine Urobilinogen Ur Leukocyte Esterase Urine RBC Urine WBC Uric Acid Crystals Urine Bacteria Urine Mucus Micro UA Comment Urine Culture Comments Urine Opiates Screen Neg Ur Barbiturates Screen Neg Phenytoin Less than 0.4 L Ur Amphetamines Screen Neg U Benzodiazepines Scrn Neg Urine Cocaine Screen Neg U Cannabinoids Screen Neg 06/09/18 06/10/18 06/10/18 12:14 05:11 05:11 WBC RBC Hgb Hct MCV MCH MCHC RDW Plt Count MPV Neut % (Auto) Lymph % (Auto) [place] % (Auto) Eos % (Auto) Baso % (Auto) Neut # (Auto) Lymph # (Auto) [place] # (Auto) Eos # (Auto) Baso # (Auto) WBC Differential Differential Comment Sodium Potassium Chloride Carbon Dioxide Anion Gap BUN Creatinine Estimated GFR Random Glucose Calcium Total Bilirubin AST ALT Alkaline Phosphatase Total Creatine Kinase 242 H CK-MB (CK-2) 1.7 CK-MB (CK-2) % 0.7 Total Protein Albumin Urine Color Yellow Urine Clarity Cloudy H Urine pH 5.0 Ur Specific [place] 1.013 Urine Protein Negative Urine Glucose (UA) Negative Urine Ketones Negative Urine Occult Blood Large H Urine Nitrate Negative Urine Bilirubin Negative Urine Urobilinogen Less than 2 Ur Leukocyte Esterase Negative Urine RBC 92 H Urine WBC 1 Uric Acid Crystals Rare H Urine Bacteria Rare H Urine Mucus Few H Micro UA Comment Culture not ind Urine Culture Comments Culture not ind Urine Opiates Screen Ur Barbiturates Screen Phenytoin 3.1 L Ur Amphetamines Screen U Benzodiazepines Scrn Urine Cocaine Screen U Cannabinoids Screen - Imaging Impressions Chest X-Ray 06/09/18 10:24 CONCLUSION: No acute cardiopulmonary disease. - Procedures none Assessment and Plan - Plan 27-year-old female presenting with Generalized tonic-clonic seizure witnessed with history of seizure disorder noncompliant with medications for 1 week Patient received IV loading dose Dilantin in the ED. Rpt level still subtherapeutic will reload. Also change to 300 mg HS Po since she complains of drowsiness. Check Dilantin level in a.m. No driving for 6 months, advise adequate sleep. No swimming alone, carrying young children and climbing heights Mildly elevated CK possibly mild rhabdomyolysis from seizure Ct IV fluid hydration Repeat CK in a.m. Microscopic hematuria on UA. On questioning patient is currently on her cycles. If stable discharge home tomorrow. Discharge Planning: Home in am
[2018-06-10] MEDS ORDERED: PHENYTOIN IV.SIG ONE (11:00)
[2018-06-10] MEDS ORDERED: SODIUM CHLOR 0.9% IV.SIG ONE (11:00)
[2018-06-10] MEDS: Sod Chloride 0.9% Inj 1,000 ML IV.CONT SCH (11:57)
[2018-06-10] MEDS ORDERED: Phenytoin Sodium 100 MG Capsule PO SCH (21:00)
[2018-06-10 23:58] LABS: Anion Gap 9 meq/L (5-15); Blood Urea Nitrogen 7 mg/dL (7-18); Calcium 8.6 mg/dL (8.5-10.1); Carbon Dioxide 20.7 meq/L (21.0-32.0); Chloride 112 meq/L (98-107); Glomerular Filtration Rate Greater Than 89 mL/min (>89); Glucose,Random 67 mg/dL (74-106); Potassium 4.1 meq/L (3.5-5.1); Sodium 142 meq/L (136-145)
[2018-06-11] MEDS: Sod Chloride 0.9% Inj 1,000 ML IV.CONT SCH (04:47)
[2018-06-11 06:22] LABS: Baso % (Auto) 0.6 % (0.0-2.0); Eos # (Auto) 0.2 th/mm3 (0.0-0.4); Eos % (Auto) 2.2 % (0.0-4.0); Hematocrit 36.5 % (35.0-46.0); Hemoglobin 11.5 gm/dL (11.6-15.3); Lymph # (Auto) 2.7 th/mm3 (1.0-4.8); Lymph % (Auto) 34.9 % (9.0-44.0); Mean Corpuscular HGB Conc 31.6 % (32.0-36.0); Mean Corpuscular Hemoglobin 23.6 pg (27.0-34.0); Mean Corpuscular Volume 74.7 fL (80.0-100.0); Mean Platelet Volume 8.7 fL (7.0-11.0); Mono # (Auto) 0.7 th/mm3 (0.0-0.9); Mono % (Auto) 9.2 % (0.0-8.0); Neut # (Auto) 4.1 th/mm3 (1.8-7.7); Neut % (Auto) 53.1 % (16.0-70.0); Platelet Count 303 th/mm3 (150-450); Red Blood Count 4.88 mil/mm3 (4.00-5.30); Red Cell Distribution Width 15.6 % (11.6-17.2); White Blood Count 7.7 th/mm3 (4.0-11.0)
[2018-06-11 06:51] LABS: Anion Gap 9 meq/L (5-15); Blood Urea Nitrogen 8 mg/dL (7-18); Carbon Dioxide 21.9 meq/L (21.0-32.0); Chloride 111 meq/L (98-107); Glomerular Filtration Rate Greater Than 89 mL/min (>89); Glucose,Random 119 mg/dL (74-106); Potassium 3.7 meq/L (3.5-5.1); Sodium 142 meq/L (136-145)
[2018-06-11 06:54] LABS: Creatine Kinase 147 U/L (26-192); Phenytoin (Dilantin) 7.6 mcg/mL (10.0-20.0)
[2018-06-11 09:46] VITALS: BP 100/53; PULSE 74; RESP 18; TEMP 98.8; O2SAT 97
--- NOTE | 2018-06-11 09:47 | P.DS ---
Date of admission: 06/09/18 14:46 Primary care physician: No Primary Care Physician Brief History from admission: Patient is a very pleasant 27-year-old right-handed female with known history of seizure disorder on maintenance dose of Dilantin 100 mg 3 times a day was brought in by her sister this morning she was noted to have going to generalized tonic-clonic seizures early this morning during sleep. Per patient her seizures usually occurs when she is asleep. Her last seizure episode prior to this was in February. When asked about medication sheets as stated she takes Dilantin 100 mg 3 times a day but she admits to not taking it for the past 1 week. Patient denies any fever nausea vomiting neck pain. Patient was given loading dose of Dilantin and. Patient is now awake alert oriented 3. Admitted for observation. DS: Diagnosis - Discharge Diagnosis (1) Seizure Status: Acute (2) Seizure secondary to subtherapeutic anticonvulsant medication Status: Acute DS: Medications - Discharge Medications Prescriptions: phenytoin sodium extended 300 mg PO HS #90 cap DS: Summary Hospital Course: Ms. Rosa is a pleasant 27-year-old -[place] female with a history of seizure disorder who was admitted on 06/09/2018 due to seizure activity. She was not taking her medications for a week. She reported feeling drowsy with Dilantin. Patient was a started on Dilantin 300 mg nightly. She remained hemodynamically stable and no further seizure activities. She was advised not to drive or operate any heavy machinery for 6 months. She was also advised to follow-up with [facility]. Patient verbalized understanding. Patient is being discharged home on Dilantin 300 mg nightly. - Time Spent with Patient Total time spent providing and/or coordinating discharge services: Less than 30 minutes - Quality: VTE Deep Vein Thrombosis/Pulmonary Embolism Present on Admission: No Exam Vital signs: Vital Signs 06/10/18 11:46 06/10/18 12:00 06/10/18 16:00 Temperature 97.9 F 98.2 F Pulse Rate 90 73 71 Respiratory Rate 18 18 Blood Pressure 126/58 L 109/54 L Pulse Oximetry 98 100 06/10/18 18:17 06/10/18 20:00 06/11/18 00:00 Temperature 98.4 F 98.2 F Pulse Rate 90 80 80 Respiratory Rate 16 16 Blood Pressure 113/53 L 116/59 L Pulse Oximetry 100 100 Intake & Output 06/10/18 06/11/18 06/11/18 18:59 06:59 18:59 Intake Total 123 / 123 1680 / 1680 Balance 123 / 123 1680 / 1680 Intake: IV 123 / 123 1000 / 1000 NS Inj 1,000 ML @ 70 mls/hr IV. 1000 / 1000 CONT .[id number] [facility] Rx#:[id number] Dilantin Inj 1,150 MG In NS Inj 123 / 123 100 ML @ 123 mls/hr IV.SIG ONCE ONE Rx#:[id number] Oral 680 / 680 Other: # Voids 4 Date of Last Bowel Movement 06/09/18 06/09/18 Narrative: GENERAL: Alert, oriented 3, NAD. SKIN: Warm and dry. HEAD: Normocephalic. EYES: No scleral icterus. No injection or drainage. NECK: Supple, trachea midline. No JVD or lymphadenopathy. CARDIOVASCULAR: Regular rate and rhythm without murmurs, gallops, or rubs. RESPIRATORY: Breath sounds equal bilaterally. No accessory muscle use. GASTROINTESTINAL: Abdomen soft, non-tender, nondistended. MUSCULOSKELETAL: No cyanosis, or edema. BACK: Nontender without obvious deformity. No CVA tenderness. Results Procedures completed during hospitalization: none Labs on day of discharge: Labs from last 24 hours 06/11/18 06/11/18 06/10/18 05:00 05:00 05:11 WBC 7.7 RBC 4.88 Hgb 11.5 L Hct 36.5 MCV 74.7 L MCH 23.6 L MCHC 31.6 L RDW 15.6 Plt Count 303 MPV 8.7 Neut % (Auto) 53.1 Lymph % (Auto) 34.9 [place] % (Auto) 9.2 H Eos % (Auto) 2.2 Baso % (Auto) 0.6 Neut # (Auto) 4.1 Lymph # (Auto) 2.7 [place] # (Auto) 0.7 Eos # (Auto) 0.2 Baso # (Auto) 0.0 WBC Differential . Differential Comment Auto diff final Sodium 142 142 Potassium 3.7 4.1 Chloride 111 H 112 H Carbon Dioxide 21.9 20.7 L Anion Gap 9 9 BUN 8 7 Creatinine 0.81 0.87 Estimated GFR Greater than 89 Greater than 89 Random Glucose 119 H 67 L Calcium 8.0 L 8.6 Magnesium 2.0 Total Creatine Kinase 147 Phenytoin 7.6 L - Impressions ITS Impressions Chest X-Ray 06/09/18 10:24 CONCLUSION: No acute cardiopulmonary disease. Discharge Plan - Discharge Disposition Patient Disposition: 01 Discharge Home - Discharge Condition Condition: Good - Discharge Order Discharge Orders: Discharge Order (Routine); Ordered 06/11/18 Ordered By: Rufina Saravia - Discharge Details Anticipated Discharge Date: 06/11/18 - Physicians Team Primary Care Provider: Primary Care Rhoda Palma Attending Provider: Rufina Saravia
== END 2018-06-11 11:40 | disposition home or self-care (01) ==
LOC: NEPC 10:04 → NEPFCDU 10:04 → NEDA 10:04 → NEPFCDU 16:40
PROVIDERS: ADMIT Hospitalist; ATTEND Hospitalist